=== PATIENT | male | born 1965 | race Caucasian/White ===

== ENCOUNTER 2020-03-14 15:30 | Outpatient (CLI) | payer OTHER, SELFPAY | END 2020-03-14 15:31 | disposition home or self-care (01) | LOC: SPT 15:32 | PROVIDERS: Family Provider Nurse Practitioner Family; PCP Nurse Practitioner Family; Visit Provider Podiatrist Foot & Ankle Surgery | DX: Z46.89 Encounter for fitting and adjustment of other specified devices (principal); M25.571 Pain in right ankle and joints of right foot; Q66.89 Other specified congenital deformities of feet | CPT/HCPCS: L3030 ==

== ENCOUNTER → 2020-08-12 15:30 | Outpatient (BNVA) | payer OTHER, SELFPAY | PROVIDERS: Family Provider Nurse Practitioner Family; PCP Nurse Practitioner Family; Visit Provider Podiatrist Foot & Ankle Surgery | DX: Z11.59 Encounter for screening for other viral diseases (principal) | CPT/HCPCS: 87635 ==

== ENCOUNTER 2020-08-13 09:12 | Outpatient (CLI) | payer OTHER, SELFPAY ==
--- NOTE | 2020-08-13 09:16 | MR_ITS ---
WS: [id number] INDICATION: Preoperative planning congenital anomaly TECHNIQUE: MRI of the right foot without gadolinium enhancement. Sagittal PD STIR, axial T1 STIR, axi al PD T2 coronal PD coronal T2 fat sat FINDINGS: Area of interest marked on the lateral side of the foot overlying the cuboid. Normal bone m arrow signal in the talus and calcaneus. Tiny Achilles enthesophyte. Erosive changes involving the la teral aspect of the navicular and cuboid articulation. A few small erosions involving the tarsal bone s. Fifth metatarsal base is normal in appearance. Normal medial and lateral malleolus. Distal Kinga s is normal in appearance. Normal bone marrow signal in the underlying cuboid. Normal peroneal tendons. Normal visualized soft tissues. No drainable abscess or fluid collection. No rmal bone marrow signal involving the metatarsals and visualized phalanges. Degenerative arthritis wi th subchondral cystic change involving the first metatarsal and adjacent proximal phalanx with edema. MR/MR foot RT wo con* [id number] IMPRESSION: 1. Marker overlying the lateral midfoot at the level of the cuboid. Degenerati ve arthritis with subchondral cystic change at the cuboid navicular articulatio n. Otherwise normal bone marrow signal in the underlying cuboid. 2. Base of fifth metatarsal is normal in appearance. 3. Ankle mortise is normal in appearance. Normal medial and lateral malleolus. Normal bone marrow signal in the talus and calcaneus. 4. Tiny Achilles enthesophyte. 5. Visualized peroneal tendon sheath appears unremarkable. 6. Degenerative arthritis worse at the first MTP with subchondral cystic valente e and edema in the first proximal phalanx.
== END 2020-08-13 09:13 | disposition home or self-care (01) ==
LOC: RADSHAW 09:15
PROVIDERS: PCP Family Medicine; Visit Provider Podiatrist Foot & Ankle Surgery
DX: Q66.89 Other specified congenital deformities of feet (principal); M19.071 Primary osteoarthritis, right ankle and foot; R60.0 Localized edema
CPT/HCPCS: 73718

== ENCOUNTER 2020-08-16 06:21 | Day surgery (SDC) | payer OTHER, SELFPAY ==
[2020-08-16] VITALS (14 sets, daily range): BP systolic 94–148; BP diastolic 67–82; PULSE 64–80; RESP 14–27; TEMP 36.1–36.6; O2SAT 94–99
--- NOTE | 2020-08-16 | SCC_ITS ---
Procedure Done: Excision of right tarsal coalition 25308 9 seconds of fluoroscopic guidance, for a cumulative dose of 0.169 mGy, was provided to Dr. Hernandez by the radiology department. C-arm images of the -RIGHT foot were saved for the patient's permanent record. [facility]Fish
--- NOTE | 2020-08-16 06:45 | P.ANESASSM_ITS ---
Pre-Anesthetic Assessment Pre-Anesthetic Assessment: Height/Weight: Height 1.75 m Weight 82.1 kg Temp Pulse Resp BP Pulse Ox 97.8 F 71 20 H 133/82 98 08/16/20 06:29 08/16/20 06:29 08/16/20 06:29 08/16/20 06:29 08/16/20 06:29 Preop Diagnosis: Right tarsal coalition Proposed Procedure: Operation Date: 08/16/20 08:00 Proposed Procedures p Excision of right tarsal coalition 04937 Q66.89(Right) - Chris Hernandez DPM Familial anesthetic complications: none Last intake: Intake Last Liquid Date 08/15/20 Last Liquid Time 20:00 Last Solid Date 08/15/20 Last Solid Time 18:00 Social: Social History: Tobacco and No alcohol Exam: Pre-Anes Outpt Exam: alert, oriented x 3, clear to auscultation bilaterally and regular rate & rhythm Airway: Cervical ROM: WNL MP: 2 Dentition: Partials CV/HEM: CV/HEM: CAD (only on aspirin; doing well, no chest pains, able to ach ieve > 4 METS), HTN and HI (2011) Hepatic: Hepatic: None reported GI: GI: None reported Metabolic: Metabolic: None reported Musc/skel: Musc/skel: None reported Neuropsych: Neuropsych: None reported Anesthetic Plan: ASA status: 2 Anesthesia: General and Regional (specify below) Risk of > 500 ml blood loss (7ml/kg in children): No PFSH Anesthesia PFSH: Medical History (Updated 07/31/20 @ 08:58 by Chris Hernandez DPM) CAD (coronary artery disease) Dyslipidemia Essential hypertension Glucose intolerance (impaired glucose tolerance) Non-ST elevation HI (NSTEMI) Presence of stent in left circumflex coronary artery Surgical History (Updated 07/31/20 @ 08:58 by Chris Hernandez DPM) Hx of coronary angioplasty Social History Smoking and tobacco status: former smoker Alcohol intake: never Marital status: Current occupational status: employed Data Anesthesia Cardiac Studies: No Data to Display
[2020-08-16] MEDS: sodium chloride 0.9% 1,000 ML 30 ML IV (06:47)
[2020-08-16] MEDS: midazolam 1 mg/mL INJ 2 mL 2 MG IVP (06:55)
--- NOTE | 2020-08-16 07:05 | ANES.PROC ---
Anesthesia Procedures Procedure/Date: 08/16/20 Nerve Block ^: Nerve Block 1: Main Anesthesia: general anesthesia Time Out Performed: Yes Consent: requested by attending/covering physician, from patient, risks and benefits reviewed and patient agrees to proceed Nerve block location: popliteal (R) Anesthesia monitors applied: pulse oximetry, EKG, BP cuff and oxygen Nerve block position: supine Anesthetic Used: ropivicaine 0.5% and with decadron (4 mg) Amount of anesthesia used (mL): 30 Ultrasound used to: recognize landmarks Nerve Stimulator Used?: No Interscalene/Femoral BLK: 4 stimuplex 21 g needle used for position and inplane approach, visualize local anesthetic spread and no vascular puncture identified Injection: neg aspiration of heme Patient Tolerated Procedure: well and no complications Complications: none and inadequate anesthesia Additional Comments: Approximately 45 minutes after block patient states he still feels the the throbbing pain sensation in his ankle that he gets when he stands up. However, patient also states his foot feels numb. Informed patient the block may continue to improve, he will continue to feel discomfort at the medial ankle, or that the local solution may not have surrounded the common peroneal and tibial nerve circumferentially.
--- NOTE | 2020-08-16 07:13 | SUR.OPER ---
Nerve block done on pt's right knee for a right foot surgery.
--- NOTE | 2020-08-16 08:33 | P.HPUD_ITS ---
Surgery/Procedure H&P Update DATE OF PROCEDURE: August 16, 2020 DATE H&P PERFORMED: 07/31/20 H&P UPDATE INFORMATION: I have reviewed H&P completed within last 30 days, I have examined patient prior to procedure, No changes to prior documentation and H&P is in [facility] EMR on date indicated PREOP DIAGNOSIS: Right tarsal coalition PLANNED PROCEDURE: Operation Date: 08/16/20 08:00 Proposed Procedures p Excision of right tarsal coalition 12586 Q66.89(Right) - Chris Hernandez DPM
--- NOTE | 2020-08-16 08:33 | P.OP_ITS ---
Operative Report Date of procedure: August 16, 2020 Pre-op Diagnosis: Right tarsal coalition Post-op diagnosis: same Procedure Done: Excision of right tarsal coalition [id number] Implants: Interpositional silicone sheet. 2-0 Vicryl, 4-0 Vicryl, 4-0 nylon. Pathology: none sent Surgeon: Chris Hernandez D.P.M. Accounting Office Manager: Nielsh Kim Anesthesia: MAC Estimated blood loss: Less than 5 mL Tourniquet time: See intraoperative documentation. 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 Patient has failed cortisone injections, supportive shoes, functional bracing including orthotics and AFO, NSAIDs, and home therapy and stretching as well as activity modifications has pain on a daily basis this is been progressive would like to discuss surgical resection of the coalition. Risks include pain, bleeding, numbness, infection, failure to correct deformity, recurrence of coalition and need for further surgery in the future, damage to adjacent soft tissue structures, numbness, chronic swelling, bruising, surgical site dehiscence, postoperative infection. Patient is agreeable wishes to proceed informed consent signed and right foot initialed in preop. No guarantees written, expressed or implied. Procedure: Under mild sedation the patient was brought to the operating room and placed on the operating table in supine position. A timeout was performed. Anesthesia was then administered by the anesthesia service. Of note patient received a popliteal block preoperatively per anesthesia. Local anesthesia injected by myself and a saphenous nerve block right ankle utilizing 0.5% Marcaine plain 2 cc utilized. Well-padded pneumatic tourniquet applied to the right ankle. Right lower extremity was scrubbed, prepped and draped utilizing normal aseptic technique. Right foot was examined a weighted with an Esmarch bandage and a tourniquet was inflated to 250 mmHg. Attention was directed to the right dorsal lateral foot where the sinus tarsi was palpated as well as the base of the fourth metatarsal. A sinus tarsi approach was planned and carried out utilizing a #15 blade in a curvilinear fashion starting 1 cm inferior and anterior to the distal fibula coursing in a curvilinear fashion toward the base of the fourth metatarsal, incision was made with a #15 blade through skin. Blunt and sharp dissection carried down through skin and subcutaneous tissue with care taken to retract and preserve neurovascular and tendinous structures. All bleeders were ligated and cauterized as necessary. Within a sinus tarsi the origin of the extensor digitorum brevis muscle was reflected and dissection was carried subperiosteal to the lateral aspect of the cuboid where I was able to identify and visualize the combination of fibrous and osseous coalition of the navicular cuboid of the right foot this was confirmed utilizing triangulation and intraoperative C arm. The coalition was then resected utilizing curved osteotome and small power bur. All rough edges were smoothed. Interpositional silicone sheet was inserted at the resected coalition site. Incision site was then flushed with copious amounts of sterile saline solution. Sinus tarsi was injected with 1 cc of Decadron concentration 4 mg/mL. The motion at the subtalar joint intraoperatively was smooth without crepitus or restriction. Midtarsal joint appeared to function properly while loading intraoperatively. Origin of the extensor digitorum brevis muscle was reestablished and sutured utilizing 2-0 Vicryl. Subcutaneous tissue reapproximated utilizing 4-0 Vicryl and skin reapproximated utilizing 4-0 nylon. Incision site was dressed with Adaptic, sterile 4 x 4, Kerlix and Rodolfo wrap, tourniquet was then deflated and a prompt hyperemic response was noted to the distal digits of the right foot. Patient tolerated procedure well and was transferred to the PACU with vital signs stable vascular status intact. He had a cam boot which was applied to the right lower extremity. Following a period of postoperative monitoring he will be discharged home is to remain nonweightbearing at this time he has a order written for crutches. Patient provided my cell phone number and follow-up in podiatry clinic.
[2020-08-16] MEDS: dexamethasone 4 mg/mL INJ 8 MG (09:26)
[2020-08-16] MEDS: triamcinolone 40 mg/mL SDV (09:27)
[2020-08-16] MEDS: fentaNYL 50 mcg/mL INJ 2mL IVP ×2 (10:03→10:08)
--- NOTE | 2020-08-16 10:22 | ANES.PROC ---
Anesthesia Procedures Procedure/Date: 08/16/20 Nerve Block ^: Nerve Block 1: Main Anesthesia: general anesthesia Consent: requested by attending/covering physician, from patient, from other, risks and benefits reviewed and patient agrees to proceed Nerve block location: popliteal (R) Anesthesia monitors applied: pulse oximetry, EKG, BP cuff and oxygen Nerve block position: supine Anesthetic Used: ropivicaine 0.5% Amount of anesthesia used (mL): 10 Ultrasound used to: recognize landmarks Interscalene/Femoral BLK: 4 stimuplex 21 g needle used for position and inplane approach, visualize local anesthetic spread and no vascular puncture identified Injection: neg aspiration of heme Patient Tolerated Procedure: well Complications: none Additional Comments: Patient continued to have severe pain post op. An extra 10 cc of ropi 0.5% injected with good effect. Patient appears visibly more comfortable
[2020-08-16] MEDS: oxyCODONE-APAP 10-325 mg Tablet 1 TAB PO (10:47)
--- NOTE | 2020-08-16 11:10 | ANE.PACU2 ---
Inpatient post-anesthesia follow up: Airway intact: Yes Vital signs: Temperature 97.2 F Pulse Rate 71 Respiratory Rate 18 Blood Pressure 148/78 Pulse Oximetry 94 Oxygen Delivery Me thod Room Air Oxygen Flow Rate 8 Fraction of Inspir ed Oxygen Hydration adequate: Yes Nausea and vomiting: No Pain level: 4 Mental status: Baseline
== END 2020-08-16 11:10 | disposition home or self-care (01) ==
PROVIDERS: PCP Family Medicine; Visit Provider Podiatrist Foot & Ankle Surgery
PROC: (CPT 28140; principal; 2020-08-16 08:00)
DX: Q66.89 Other specified congenital deformities of feet (principal); I25.10 Atherosclerotic heart disease of native coronary artery without angina pectoris; I10 Essential (primary) hypertension; I25.2 Old myocardial infarction; E78.5 Hyperlipidemia, unspecified; Z95.5 Presence of coronary angioplasty implant and graft; Z87.891 Personal history of nicotine dependence; Z79.82 Long term (current) use of aspirin
CPT/HCPCS: 28116; 12345; 64450; 76000; 76942; J0131; J0690; J1100; J2250; J2370; J2405; J2704; J2795; J3010; J3301; J3490; J7030

== ENCOUNTER 2020-08-23 10:24 | Outpatient (CLI) | payer OTHER, SELFPAY | END 2020-08-23 10:25 | disposition home or self-care (01) | LOC: SPT 10:26 | PROVIDERS: PCP Family Medicine; Visit Provider Podiatrist Foot & Ankle Surgery | DX: Z46.89 Encounter for fitting and adjustment of other specified devices (principal); Q66.89 Other specified congenital deformities of feet | CPT/HCPCS: 97760; L4361 ==

== ENCOUNTER 2021-04-04 07:52 | Outpatient (CLI) | payer OTHER, SELFPAY ==
--- NOTE | 2021-04-04 08:06 | MR_ITS ---
WS: [id number] MRI CERVICAL SPINE NONCONTRAST HISTORY: M54.12 - Radiculopathy, cervical region COMPARISON: None available. Technique: Multiplanar, multisequence noncontrast imaging of the cervical spine. Normal posterior lumbar alignment. Battery replacement in the C5 and C6 adjacent endplates. There is moderate disc space narrowing at C5-6. Signal within the cervical cord is normal. Visualized posterior fossa is unremarkable. Craniocervical junction, C1 and C2 relationship, odontoid process and soft tissues are normal. C2-C3: Normal. C3-C4: Mild annular disc bulging with hypertrophic osteophytes. Mild bilateral facet joint arthritis. Moderate RIGHT and mild LEFT foraminal stenosis predominantly due to osteophytes. C4-C5: Very mild annular disc bulge with a central disc protrusion. Mild bilateral facet joint arthri tis and foraminal osteophytes. Only mild LEFT foraminal narrowing. C5-C6: Moderate annular disc bulging with osteophytic ridging. Disc osteophyte complexes extend into the foramen causing moderate to severe bilateral foraminal narrowing. Moderate central stenosis. C6-C7: Mild asymmetric disc bulging and osteophytosis. Asymmetric to the LEFT. There is a small shall ow LEFT paracentral disc protrusion. Mild central and foraminal stenosis. C7-T1: Normal. Paraspinal soft tissue are normal. MR/MR cervical spin wo con* [id number] IMPRESSION: 1. Moderate to severe bilateral foraminal stenosis with moderate central steno sis at C5-6 due to combination of disc and osteophyte disease. 2. Moderate RIGHT and mild LEFT foraminal stenosis at C3-4 predominantly due t o osteophytes. 3. Mild central and bilateral foraminal stenosis at C6-7.
--- NOTE | 2021-04-04 08:06 | MR_ITS ---
WS: [id number] MRI RIGHT SHOULDER HISTORY: M25.511 - Pain in right shoulder COMPARISON: None available. TECHNIQUE: Multiplanar sequences of the shoulder joint are submitted. Moderate to severe hypertrophic changes at the AC joint. Thickening of the capsule surrounding the AC joint with increased T2 signal. Osteophytes from the AC joint encroaching upon the supraspinatus ten don and muscle. There is an additional smaller osteophyte from the distal undersurface of the acromio n encroaching upon the supraspinatus tendon. No significant subacromial or subdeltoid bursal fluid. N o os acromion. Biceps tendon is in normal position. No muscle atrophy or edema. No rotator cuff tear or significant tendinopathy. There is an irregular d efect with increased T2 signal in the anterior labrum consistent with a partial tear. No fracture or marrow edema. MR/MR shoulder RT wo con* [id number] IMPRESSION: 1. Moderate to severe AC joint hypertrophy. There is encroachment upon the sup raspinatus muscle and tendon by the AC joint hypertrophy and also the distal un dersurface of the acromion. 2. No rotator cuff tear. 3. Highly suspicious for partial tear involving the anterior labrum.
== END 2021-04-04 07:53 | disposition home or self-care (01) ==
PROVIDERS: PCP Family Medicine; Visit Provider Nurse Practitioner Family
DX: M54.12 Radiculopathy, cervical region (principal); M54.2 Cervicalgia; M25.511 Pain in right shoulder; M48.02 Spinal stenosis, cervical region; M25.78 Osteophyte, vertebrae
CPT/HCPCS: 72141; 73221

== ENCOUNTER → 2021-05-20 15:36 | Outpatient (BNVA) | payer OTHER, SELFPAY | PROVIDERS: PCP Family Medicine; Visit Provider Nurse Practitioner Family | DX: E86.0 Dehydration (principal); R11.0 Nausea | CPT/HCPCS: 80053; 81000; 85025 ==

== ENCOUNTER 2021-05-30 06:00 | Outpatient (RCR) | payer OTHER, SELFPAY | END 2021-06-24 23:59 | disposition home or self-care (01) | LOC: GPT 06:00 | PROVIDERS: PCP Family Medicine; Referring Provider Orthopaedic Surgery; Visit Provider Orthopaedic Surgery | DX: S46.911D Strain of unspecified muscle, fascia and tendon at shoulder and upper arm level, right arm, subsequent encounter (principal); X58.XXXD Exposure to other specified factors, subsequent encounter | CPT/HCPCS: 97032; 97110; 97161; 97530 ==

== ENCOUNTER 2022-04-01 23:25 | Emergency (ER) | payer OTHER, SELFPAY ==
[2022-04-01 23:41] VITALS: BP 162/82; PULSE 75; RESP 18; TEMP 36.9; O2SAT 97; BMI 27.0
[2022-04-02 01:19] LABS: Basophils # 0.1 10^3/uL (0.0-0.1); Basophils % 0.4 %; Eosinophils # 0.1 10^3/uL (0.0-0.8); Eosinophils % 0.7 %; Hematocrit 45.2 % (42.0-52.0); Lymphocytes # 2.1 10^3/uL (0.8-4.8); Lymphocytes % 17.6 %; Mean Corpuscular HGB Conc 33.2 g/dL (30.0-36.0); Mean Corpuscular Hemoglobin 29.4 pg (28.0-34.0); Mean Corpuscular Volume 88.6 fl (80-94); Mean Platelet Volume 9.9 fL (7.4-10.4); Monocytes # 0.7 10^3/uL (0.2-0.9); Monocytes % 6.1 %; Neutrophils % 74.9 %; Nucleated Red Blood Cells % 0 %; Platelet Count 200 10^3/cmm (130-400); Red Cell Distribution Width 13.4 % (12.1-15.1); White Blood Count 11.9 10^3/uL (4.0-10.0)
[2022-04-02 01:34] LABS: Alanine Aminotransferase 18 U/L (0-41); Albumin Level 4.8 g/dL (3.5-5.2); Alkaline Phosphatase 85 IU/L (40-130); Anion Gap 15.9 (5-19); Aspartate Amino Transferase 21 U/L (0-40); Blood Urea Nitrogen 11 mg/dL (6-20); Calcium 9.6 mg/dL (8.5-10.5); Carbon Dioxide 29 mmol/L (22-29); Chloride 97 mmol/L (98-107); Globulin 3.4 g/dL (1.3-4.6); Glomerular Filtration Rate 99.3 mL/min (90-130); Glucose 107 mg/dL (65-115); Lipase 23 U/L (13-60); Osmolality Calculated 286 mOsm/kg (285-295); Potassium 3.9 mmol/L (3.5-5.1); Sodium 138 mmol/L (136-145); Total Bilirubin 0.4 mg/dL (0.15-1.2); Total Protein 8.2 g/dL (6.6-8.7); Urine Appearance Clear (CLEAR); Urine Color Yellow (Yellow)
[2022-04-02 01:35] LABS: Add Urine Microscopic? YES; Bilirubin Urine Neg (Negative); Blood Urine 2+ (Negative); Glucose Urine UA Norm (Normal); Ketones Urine Negative (Negative); Leukocyte Esterase Urine Negative (Negative); Nitrate Urine Negative (Negative); Protein Urine Trace (Negative); Specific Gravity, Urine 1.005 (1.005-1.030); Urobilinogen Urine Norm (Negative); WBC Urine 0-4 /hpf (0-5); pH Urine 7 (5-7)
[2022-04-02 01:36] LABS: Add Urine Culture? No; Squamous Epithelial Cell Urine 0-4 /hpf (0-5)
--- NOTE | 2022-04-02 01:45 | CTR_ITS ---
PROCEDURE INFORMATION: Exam: CT Abdomen And Pelvis Without Contrast Exam date and time: 04/02/2022 1:55 AM Age: 56 years old Clinical indication: Nausea and vomiting; Abdominal pain; Localized; Patient HX: C/O upper abd pain with n/v. ; Additional info: Generalized upper abdominal pain, n/v TECHNIQUE: Imaging protocol: Computed tomography of the abdomen and pelvis without contrast. Radiation optimization: All CT scans at this facility use at least one of these dose optimization techniques: automated exposure control; mA and/or kV adjustment per patient size (includes targeted exams where dose is matched to clinical indication); or iterative reconstruction. COMPARISON: No relevant prior studies available. RADIATION DOSE METRICS: Total DLP (mGy-cm): 1364.71 FINDINGS: Lungs: The visualized lung bases demonstrate no focal airspace opacification or pleural effusion. Heart: The visualized heart is within normal limits for size. There is no evidence of pericardial abnormality. Liver: The liver is normal in size and contour. Gallbladder and bile ducts: The gallbladder is well distended. Minimal layering sludge versus stones in the gallbladder fundus. Gallbladder wall thickening noted. No pericholecystic fat stranding identified. Pancreas: The pancreas appears normal. Spleen: The spleen appears normal. Adrenal glands: The adrenals appear normal. Kidneys and ureters: The kidneys empty into non-dilated ureters. No renal or ureteral stones are identified. No perinephric or periureteral fat tissue stranding is identified. Stomach and bowel: The stomach is unremarkable. The small bowel loops are not abnormally dilated. The large bowel loops are not abnormally dilated. Appendix: The appendix appears normal. Intraperitoneal space: No ascites or significant fluid collection. Vasculature: The infrarenal abdominal aorta measures up to 5 cm in diameter. Lymph nodes: There are no enlarged lymph nodes. Urinary bladder: The bladder is distended and demonstrates no focal contour abnormality. Reproductive: The prostate is unremarkable. The seminal vesicles are unremarkable. Bones/joints: Large calcification measuring up to 2.0 cm noted in the superficial fat overlying the right gluteal muscles.Multilevel degenerative changes in the spine. Grade 1 retrolisthesis of L5 on S1. Soft tissues: Unremarkable. CT/CT abdomen pelvis wo con [id number] IMPRESSION: Minimal layering sludge versus stones in the gallbladder fundus. Gallbladder wall thickening noted, but no pericholecystic fat stranding identified. Recommend ultrasound evaluation for cholecystitis. COMMENTS: Evaluation of solid organs and vascular structures is limited as no IV contrast was administered.
--- NOTE | 2022-04-02 01:47 | W.ED.ABDPA2 ---
Documented by User: SHMUEL Ball 04/02/22 03:09 HPI - Abdominal Pain General: Chief Complaint: Abdominal Pain Stated Complaint: stomach problems Time Seen by Provider: 04/02/22 00:01 History of Present Illness: Patient is a 56-year-old male who comes to the ED with abdominal pain. Symptoms started at about 6 PM tonight. He ate a bunch of food for dinner today and his symptoms started shortly after eating. He was having 10 out of 10 abdominal pain right after he ate. Abdominal pain was located throughout upper abdomen. He has never had abdominal pain like this before. He had nausea at that time as well. Pain was not getting any better and he felt like he needed to vomit help his symptoms so he forced himself to throw up. Here in the ED, his symptoms have improved and he says his abdominal pain now is a 2 out of 10. Denies any fever, chills, chest pain, shortness of breath, nausea, vomiting, bladder or bowel symptoms. Denies any past history of gallbladder issues. Associated Symptoms: Reports nausea and vomiting; Denies chills, constipation, diarrhea, dysuria, fever(s), hematochezia and hematuria Review of Systems Const: Denies: fever(s), chills or fatigue Eyes: Denies: change in vision or eye discomfort ENMT: Denies: throat pain, odynophagia, nasal discharge or nasal congestion Card: Denies: chest pain, palpitations, edema, swelling of feet/ankles, dyspnea on exertion or orthopnea Resp: Denies: dyspnea, productive cough or non-productive cough GI: Reports: abdominal pain, nausea and vomiting; Denies: diarrhea, constipation or hematochezia : Denies: flank pain, difficulty urinating, dysuria or hematuria Musc: Denies: neck pain, back pain or extremity swelling Skin/Breast: Denies: rash or new lesions Neuro: Denies: headache(s), numbness in extremities or weakness in extremities PFS ED PFSH: Medical History (Updated 04/10/22 @ 00:01 by ) CAD (coronary artery disease) Dyslipidemia Essential hypertension Glucose intolerance (impaired glucose tolerance) Non-ST elevation NM (NSTEMI) Presence of stent in left circumflex coronary artery Surgical History Hx of coronary angioplasty Social History Smoking and tobacco status: current every day smoker (pack a day) Alcohol intake: never Marital status: Current occupational status: employed Physical Exam Const: COMMON NORMALS: no acute distress, patient oriented x3 and alert GENERAL APPEARANCE: cooperative and comfortable HENMT: COMMON NORMALS: normocephalic HEAD & SCALP: normocephalic MOUTH: Normal oral and palatal mucosa present THROAT: posterior oropharynx normal and uvula midline Eye: COMMON NORMALS: Equal, round and reactive pupils present and conjunctivae normal CONJUNCTIVA: Yes conjunctivae normal PUPIL: Yes Equal, round and reactive pupils present Neck/C-Spine: COMMON NORMALS: supple GENERAL: Yes normal visual inspection Resp: COMMON NORMALS: normal respiratory effort, No retractions, No use of accessory muscles and clear to auscultation bilaterally AUSCULTATION: clear to auscultation bilaterally Cardio: COMMON NORMALS: regular rate, regular rhythm, S1 normal heart sound present, S2 normal heart sound present, No gallops present (Cardio), No clicks present (Cardio), No murmurs present (Cardio) and Peripheral pulses 2+ throughout RATE: regular rate RHYTHM: regular rhythm HEART SOUNDS: S1 normal heart sound present and S2 normal heart sound present PERIPHERAL PULSES: Peripheral pulses 2+ throughout GI: COMMON NORMALS: Normal to inspection, nondistended, normoactive bowel sounds present, Soft to palpation, non-tender and no masses PALPATION: Yes Soft to palpation and No Tenderness to palpation present (GI) OTHER: Patient's abdomen is nontender upon light and deep palpation throughout all 4 quadrants. : COMMON NORMALS: Yes no CVA tenderness BLADDER/KIDNEY EXAM: Yes no CVA tenderness Back/Pelvis: COMMON NORMALS: no CVA tenderness Extremity: COMMON NORMALS: normal to inspection and no pedal edema Neuro: COMMON NORMALS: patient oriented x3 SENSORIUM/ORIENTATION: Yes alert GAIT: Yes Normal gait present Skin: GENERAL SKIN EXAM: dry skin Course Vital Signs: Vital signs: Vital Signs Temperature 98.4 F 04/01/22 23:41 Pulse Rate 80 04/02/22 03:46 Respiratory Rate 16 04/02/22 03:46 Blood Pressure 162/82 04/01/22 23:41 Pulse Oximetry 98 04/02/22 03:46 MDM - Abdominal Pain Medical Decision Making Patient is a 56-year-old male comes to the ED with abdominal pain. Patient says symptoms started today just after he ate dinner. He said the pain was in the upper abdomen and he was nauseous and had episode of emesis. Here in the ED his abdominal pain has improved greatly without any treatment and he currently rates it 2 out of 10 and says he does not have any nausea. Vitals are stable. White blood cell count 11.9 but the rest of his labs are unremarkable. CT of abdomen pelvis and ultrasound gallbladder are both pending. Patient case was discussed with Dr. Medina and he will be taking over care of patient. Dr. Medina will be managing patient and planning discharge pending image findings. Pantera Suarez PA-C Lab Data I reviewed the patient's lab results. : 04/02/22 01:07 04/02/22 01:07 Labs/Radiology: Radiology Impressions Abdomen/Pelvis CT 04/02/22 01:45 IMPRESSION: Minimal layering sludge versus stones in the gallbladder fundus. Gallbladder wall thickening noted, but no pericholecystic fat stranding identified. Recommend ultrasound evaluation for cholecystitis. COMMENTS: Evaluation of solid organs and vascular structures is limited as no IV contrast was administered. ADDENDUM: 04/02/22 5000 Error in the body of the report: Under the heading vasculature: The infrarenal abdominal aorta measures up to 2.5 cm in diameter. Findings were discussed with Dr. Medina at 04/02/2022 3:38 AM CDT. Gallbladder Ultrasound 04/02/22 02:00 IMPRESSION: 1. Thickened gallbladder wall noted, but no pericholecystic fluid or gallstones identified. Additionally a negative sonographic Balbuena sign is noted. Low probability for acute cholecystitis. If persistent concern for chronic cholecystitis, recommend HIDA scan. 2. No intra or extrahepatic biliary dilatation. Laboratory Results WBC 11.9 10^3/uL (4.0-10.0) H 04/02/22 01:07 RBC 5.10 10^6/uL (4.1-5.3) 04/02/22 01:07 Hgb 15.0 g/dL (11.7-16.6) 04/02/22 01:07 Hct 45.2 % (42.0-52.0) 04/02/22 01:07 MCV 88.6 fl (80-94) 04/02/22 01:07 MCH 29.4 pg (28.0-34.0) 04/02/22 01:07 MCHC 33.2 g/dL (30.0-36.0) 04/02/22 01:07 RDW 13.4 % (12.1-15.1) 04/02/22 01:07 Plt Count 200 10^3/cmm (130-400) 04/02/22 01:07 MPV 9.9 fL (7.4-10.4) 04/02/22 01:07 Neut % (Auto) 74.9 % 04/02/22 01:07 Lymph % (Auto) 17.6 % 04/02/22 01:07 Nelson % (Auto) 6.1 % 04/02/22 01:07 Eos % (Auto) 0.7 % 04/02/22 01:07 Baso % (Auto) 0.4 % 04/02/22 01:07 Neut # (Auto) 8.90 10^3/uL (1.8-7.7) H 04/02/22 01:07 Lymph # (Auto) 2.1 10^3/uL (0.8-4.8) 04/02/22 01:07 Nelson # (Auto) 0.7 10^3/uL (0.2-0.9) 04/02/22 01:07 Eos # (Auto) 0.1 10^3/uL (0.0-0.8) 04/02/22 01:07 Baso # (Auto) 0.1 10^3/uL (0.0-0.1) 04/02/22 01:07 Nucleated RBC % (auto) 0 % 04/02/22 01:07 Nucleated RBCs # 0.0 /100WBC 04/02/22 01:07 Sodium 138 mmol/L (136-145) 04/02/22 01:07 Potassium 3.9 mmol/L (3.5-5.1) 04/02/22 01:07 Chloride 97 mmol/L (98-107) L 04/02/22 01:07 Carbon Dioxide 29 mmol/L (22-29) 04/02/22 01:07 Anion Gap 15.9 (5-19) 04/02/22 01:07 BUN 11 mg/dL (6-20) 04/02/22 01:07 Creatinine 0.8 mg/dL (0.7-1.2) 04/02/22 01:07 GFR Calculation 99.3 mL/min (90-130) 04/02/22 01:07 Glucose 107 mg/dL (65-115) 04/02/22 01:07 Calculated Osmolality 286 mOsm/kg (285-295) 04/02/22 01:07 Calcium 9.6 mg/dL (8.5-10.5) 04/02/22 01:07 Total Bilirubin 0.4 mg/dL (0.15-1.2) 04/02/22 01:07 AST 21 U/L (0-40) 04/02/22 01:07 ALT 18 U/L (0-41) 04/02/22 01:07 Alkaline Phosphatase 85 IU/L (40-130) 04/02/22 01:07 Total Protein 8.2 g/dL (6.6-8.7) 04/02/22 01:07 Albumin 4.8 g/dL (3.5-5.2) 04/02/22 01:07 Globulin 3.4 g/dL (1.3-4.6) 04/02/22 01:07 Lipase 23 U/L (13-60) 04/02/22 01:07 Urine Color Yellow (Yellow) 04/02/22 01:07 Urine Appearance Clear (CLEAR) 04/02/22 01:07 Urine pH 7 (5-7) 04/02/22 01:07 Ur Specific [place] 1.005 (1.005-1.030) 04/02/22 01:07 Urine Protein Trace (Negative) 04/02/22 01:07 Urine Glucose (UA) Norm (Normal) 04/02/22 01:07 Urine Ketones Negative (Negative) 04/02/22 01:07 Urine Blood 2+ (Negative) H 04/02/22 01:07 Urine Nitrate Negative (Negative) 04/02/22 01:07 Urine Bilirubin Neg (Negative) 04/02/22 01:07 Urine Urobilinogen Norm mg/dL (Negative) 04/02/22 01:07 Ur Leukocyte Esterase Negative (Negative) 04/02/22 01:07 Urine RBC 5-10 /hpf (0-2) H 04/02/22 01:07 Urine WBC 0-4 /hpf (0-5) H 04/02/22 01:07 Ur Squamous Epith Cells 0-4 /hpf (0-5) H 04/02/22 01:07 Amorphous Sediment Not Reportable 04/02/22 01:07 Urine Bacteria None /hpf (NONE) 04/02/22 01:07 Discharge Plan Discharge Patient Disposition: Home Clinical Impression: Abdominal pain Condition: Stable Prescriptions: No Action aspirin [[place]dee Chewable Aspirin] 81 mg tablet,chewable 81 mg PO QDAY 0RF (DME) Sole Supports Qty: 1 0RF Rx Instructions: As directed (DME) sole supports Qty: 1 0RF Rx Instructions: As directed ibuprofen 800 mg tablet 800 mg PO Q8H 7 Days Qty: 21 0RF naproxen 500 mg tablet 500 mg PO BID Qty: 60 0RF (DME) sole supports See Rx Instructions .Route .MEDSUPPLY Qty: 1 0RF Rx Instructions: As directed nitroglycerin 0.4 mg tablet, sublingual See Rx Instructions .ROUTE .COMPLEX Qty: 1 0RF Dose Instruction: TAKE ONE TABLET UNDER THE TONGUE EVERY 5 MINUTES FOR MAX OF 3 FOR CHEST PAINS Rx Instructions: TAKE ONE TABLET UNDER THE TONGUE EVERY 5 MINUTES FOR MAX OF 3 FOR CHEST PAINS ondansetron 8 mg tablet,disintegrating 8 mg PO Q8H PRN (Reason: nausea and vomiting) Qty: 20 0RF Spiriva Respimat 2.5 mcg/actuation mist 2 puff inhalation QAM Qty: 4 11RF albuterol sulfate 90 mcg/actuation HFA aerosol inhaler 2 puff inhalation Q4H PRN (Reason: shortness of breath or wheezing) Qty: 8.5 11RF (DME) Aerochamber MV Spacer See Rx Instructions .Route Qty: 10 0RF Rx Instructions: As directed amlodipine-benazepril 10-40 mg capsule 1 cap PO DAILY Qty: 90 3RF metoprolol tartrate 25 mg tablet 25 mg PO BID Qty: 180 2RF Discharge Orders: Discharge ED (Routine); Ordered 04/02/22 Ordered By: Kev Medina Referrals: Richard Coronel, [Primary Care Provider] - Discharge Diet: Usual diet Discharge Activity: Increase activity as tolerated Patient Instructions: Abdominal Pain (ED), Opioid Safety Activity Restrictions/Additional Instructions: Thank you for visiting the emergency department. You were seen evaluated for abdominal pain. The exact cause of your symptoms is unclear. Your gallbladder was mildly abnormal as discussed however it does not appear that you have acute cholecystitis especially given improvement in symptoms. Please follow-up with your primary care provider. Please return to the emergency department for fevers, worsening symptoms, or anything else that you are concerned about a feel needs emergency department evaluation. Sign Out Sign Out Data: Patient Sign Out occurred on 04/02/22 at 03:30. Patient's care was discussed, and care was transferred from to Kev Medina MD. Coding Level of Care Code ED Operator Weapon Locating Radar for Chg Fwd Exam Comprehensive Documented by User: Kev Medina MD 04/13/22 02:06 HPI - Abdominal Pain General: Chief Complaint: Abdominal Pain Stated Complaint: stomach problems Time Seen by Provider: 04/02/22 00:01 [facility] ED [facility]: Medical History (Updated 04/10/22 @ 00:01 by ) CAD (coronary artery disease) Dyslipidemia Essential hypertension Glucose intolerance (impaired glucose tolerance) Non-ST elevation NM (NSTEMI) Presence of stent in left circumflex coronary artery Surgical History Hx of coronary angioplasty Social History Smoking and tobacco status: current every day smoker (pack a day) Alcohol intake: never Marital status: Current occupational status: employed Course Vital Signs: Vital signs: Vital Signs Temperature 98.4 F 04/01/22 23:41 Pulse Rate 80 04/02/22 03:46 Respiratory Rate 16 04/02/22 03:46 Blood Pressure 162/82 04/01/22 23:41 Pulse Oximetry 98 04/02/22 03:46 MDM - Abdominal Pain Medical Decision Making Patient is a 56-year-old male comes to the ED with abdominal pain. Patient says symptoms started today just after he ate dinner. He said the pain was in the upper abdomen and he was nauseous and had episode of emesis. Here in the ED his abdominal pain has improved greatly without any treatment and he currently rates it 2 out of 10 and says he does not have any nausea. Vitals are stable. White blood cell count 11.9 but the rest of his labs are unremarkable. CT of abdomen pelvis and ultrasound gallbladder are both pending. Patient case was discussed with Dr. Medina and he will be taking over care of patient. Dr. Medina will be managing patient and planning discharge pending image findings. Pantera Suarez PA-C Patient discussed with SHMUEL Ball. I personally saw and evaluated the patient and reperformed whitt portions of E/M. Laboratory studies and imaging studies were reviewed. Discussed results of ED evaluation with the patient, he has desire to be discharged which I feel is reasonable. Return precautions and follow-up negative. Kev Medina MD Emergency Medicine Lab Data : 04/02/22 01:07 04/02/22 01:07 Labs/Radiology: Radiology Impressions Abdomen/Pelvis CT 04/02/22 01:45 IMPRESSION: Minimal layering sludge versus stones in the gallbladder fundus. Gallbladder wall thickening noted, but no pericholecystic fat stranding identified. Recommend ultrasound evaluation for cholecystitis. COMMENTS: Evaluation of solid organs and vascular structures is limited as no IV contrast was administered. ADDENDUM: 04/02/22 4130 Error in the body of the report: Under the heading vasculature: The infrarenal abdominal aorta measures up to 2.5 cm in diameter. Findings were discussed with Dr. Medina at 04/02/2022 3:38 AM CDT. Gallbladder Ultrasound 04/02/22 02:00 IMPRESSION: 1. Thickened gallbladder wall noted, but no pericholecystic fluid or gallstones identified. Additionally a negative sonographic Balbuena sign is noted. Low probability for acute cholecystitis. If persistent concern for chronic cholecystitis, recommend HIDA scan. 2. No intra or extrahepatic biliary dilatation. Laboratory Results WBC 11.9 10^3/uL (4.0-10.0) H 04/02/22 01:07 RBC 5.10 10^6/uL (4.1-5.3) 04/02/22 01:07 Hgb 15.0 g/dL (11.7-16.6) 04/02/22 01:07 Hct 45.2 % (42.0-52.0) 04/02/22 01:07 MCV 88.6 fl (80-94) 04/02/22 01:07 MCH 29.4 pg (28.0-34.0) 04/02/22 01:07 MCHC 33.2 g/dL (30.0-36.0) 04/02/22 01:07 RDW 13.4 % (12.1-15.1) 04/02/22 01:07 Plt Count 200 10^3/cmm (130-400) 04/02/22 01:07 MPV 9.9 fL (7.4-10.4) 04/02/22 01:07 Neut % (Auto) 74.9 % 04/02/22 01:07 Lymph % (Auto) 17.6 % 04/02/22 01:07 Nelson % (Auto) 6.1 % 04/02/22 01:07 Eos % (Auto) 0.7 % 04/02/22 01:07 Baso % (Auto) 0.4 % 04/02/22 01:07 Neut # (Auto) 8.90 10^3/uL (1.8-7.7) H 04/02/22 01:07 Lymph # (Auto) 2.1 10^3/uL (0.8-4.8) 04/02/22 01:07 Nelson # (Auto) 0.7 10^3/uL (0.2-0.9) 04/02/22 01:07 Eos # (Auto) 0.1 10^3/uL (0.0-0.8) 04/02/22 01:07 Baso # (Auto) 0.1 10^3/uL (0.0-0.1) 04/02/22 01:07 Nucleated RBC % (auto) 0 % 04/02/22 01:07 Nucleated RBCs # 0.0 /100WBC 04/02/22 01:07 Sodium 138 mmol/L (136-145) 04/02/22 01:07 Potassium 3.9 mmol/L (3.5-5.1) 04/02/22 01:07 Chloride 97 mmol/L (98-107) L 04/02/22 01:07 Carbon Dioxide 29 mmol/L (22-29) 04/02/22 01:07 Anion Gap 15.9 (5-19) 04/02/22 01:07 BUN 11 mg/dL (6-20) 04/02/22 01:07 Creatinine 0.8 mg/dL (0.7-1.2) 04/02/22 01:07 GFR Calculation 99.3 mL/min (90-130) 04/02/22 01:07 Glucose 107 mg/dL (65-115) 04/02/22 01:07 Calculated Osmolality 286 mOsm/kg (285-295) 04/02/22 01:07 Calcium 9.6 mg/dL (8.5-10.5) 04/02/22 01:07 Total Bilirubin 0.4 mg/dL (0.15-1.2) 04/02/22 01:07 AST 21 U/L (0-40) 04/02/22 01:07 ALT 18 U/L (0-41) 04/02/22 01:07 Alkaline Phosphatase 85 IU/L (40-130) 04/02/22 01:07 Total Protein 8.2 g/dL (6.6-8.7) 04/02/22 01:07 Albumin 4.8 g/dL (3.5-5.2) 04/02/22 01:07 Globulin 3.4 g/dL (1.3-4.6) 04/02/22 01:07 Lipase 23 U/L (13-60) 04/02/22 01:07 Urine Color Yellow (Yellow) 04/02/22 01:07 Urine Appearance Clear (CLEAR) 04/02/22 01:07 Urine pH 7 (5-7) 04/02/22 01:07 Ur Specific [place] 1.005 (1.005-1.030) 04/02/22 01:07 Urine Protein Trace (Negative) 04/02/22 01:07 Urine Glucose (UA) Norm (Normal) 04/02/22 01:07 Urine Ketones Negative (Negative) 04/02/22 01:07 Urine Blood 2+ (Negative) H 04/02/22 01:07 Urine Nitrate Negative (Negative) 04/02/22 01:07 Urine Bilirubin Neg (Negative) 04/02/22 01:07 Urine Urobilinogen Norm mg/dL (Negative) 04/02/22 01:07 Ur Leukocyte Esterase Negative (Negative) 04/02/22 01:07 Urine RBC 5-10 /hpf (0-2) H 04/02/22 01:07 Urine WBC 0-4 /hpf (0-5) H 04/02/22 01:07 Ur Squamous Epith Cells 0-4 /hpf (0-5) H 04/02/22 01:07 Amorphous Sediment Not Reportable 04/02/22 01:07 Urine Bacteria None /hpf (NONE) 04/02/22 01:07 Discharge Plan Discharge Patient Disposition: Home Clinical Impression: Abdominal pain Condition: Stable Prescriptions: No Action aspirin [[place]dee Chewable Aspirin] 81 mg tablet,chewable 81 mg PO QDAY 0RF (DME) Sole Supports Qty: 1 0RF Rx Instructions: As directed (DME) sole supports Qty: 1 0RF Rx Instructions: As directed ibuprofen 800 mg tablet 800 mg PO Q8H 7 Days Qty: 21 0RF naproxen 500 mg tablet 500 mg PO BID Qty: 60 0RF (DME) sole supports See Rx Instructions .Route .MEDSUPPLY Qty: 1 0RF Rx Instructions: As directed nitroglycerin 0.4 mg tablet, sublingual See Rx Instructions .ROUTE .COMPLEX Qty: 1 0RF Dose Instruction: TAKE ONE TABLET UNDER THE TONGUE EVERY 5 MINUTES FOR MAX OF 3 FOR CHEST PAINS Rx Instructions: TAKE ONE TABLET UNDER THE TONGUE EVERY 5 MINUTES FOR MAX OF 3 FOR CHEST PAINS ondansetron 8 mg tablet,disintegrating 8 mg PO Q8H PRN (Reason: nausea and vomiting) Qty: 20 0RF Spiriva Respimat 2.5 mcg/actuation mist 2 puff inhalation QAM Qty: 4 11RF albuterol sulfate 90 mcg/actuation HFA aerosol inhaler 2 puff inhalation Q4H PRN (Reason: shortness of breath or wheezing) Qty: 8.5 11RF (DME) Aerochamber MV Spacer See Rx Instructions .Route Qty: 10 0RF Rx Instructions: As directed amlodipine-benazepril 10-40 mg capsule 1 cap PO DAILY Qty: 90 3RF metoprolol tartrate 25 mg tablet 25 mg PO BID Qty: 180 2RF Discharge Orders: Discharge ED (Routine); Ordered 04/02/22 Ordered By: Kev Medina Referrals: Richard Coronel, DO [Primary Care Provider] - Discharge Diet: Usual diet Discharge Activity: Increase activity as tolerated Patient Instructions: Abdominal Pain (ED), Opioid Safety Activity Restrictions/Additional Instructions: Thank you for visiting the emergency department. You were seen evaluated for abdominal pain. The exact cause of your symptoms is unclear. Your gallbladder was mildly abnormal as discussed however it does not appear that you have acute cholecystitis especially given improvement in symptoms. Please follow-up with your primary care provider. Please return to the emergency department for fevers, worsening symptoms, or anything else that you are concerned about a feel needs emergency department evaluation. Sign Out Sign Out Data: Patient Sign Out occurred on 04/02/22 at 03:30. Patient's care was discussed, and care was transferred from to Kev Medina MD. Coding Level of Care Code ED Operator Weapon Locating Radar for [place] Fwd Exam Comprehensive
--- NOTE | 2022-04-02 02:00 | USR_ITS ---
PROCEDURE INFORMATION: Exam: US Abdomen, Limited; Right Upper Quadrant Exam date and time: 04/02/2022 2:33 AM Age: 56 years old Clinical indication: Nausea and vomiting; Additional info: Upper abdominal pain after eating TECHNIQUE: Imaging protocol: US abdomen. Real time ultrasound with image documentation. Limited exam focused on the right upper quadrant. COMPARISON: CT abdomen pelvis wo con [id number] 04/02/2022 1:55 AM FINDINGS: Liver: The liver appears unremarkable. No intrahepatic biliary dilatation identified. Gallbladder: Gallbladder wall is thickened measuring up to 0.5 cm in thickness. Negative sonographic Balbuena sign. No calcified gallstones identified. No pericholecystic fluid identified. Biliary ducts: Common bile duct is within normal limits measuring up to 0.5 cm in diameter. Pancreas: The pancreas visualized. Right kidney: The right kidney appears unremarkable. No hydronephrosis. Aorta: The visualized aorta is unremarkable. Inferior vena cava: The visualized IVC is unremarkable. Portal venous: The main portal vein is patent with appropriate hepatopetal flow. US/US gall bladder [id number] IMPRESSION: 1. Thickened gallbladder wall noted, but no pericholecystic fluid or gallstones identified. Additionally a negative sonographic Balbuena sign is noted. Low probability for acute cholecystitis. If persistent concern for chronic cholecystitis, recommend HIDA scan. 2. No intra or extrahepatic biliary dilatation.
[2022-04-02 03:46] VITALS: PULSE 80; RESP 16; O2SAT 98
== END 2022-04-02 03:46 | disposition home or self-care (01) ==
PROVIDERS: Physician Assistant; Emergency Provider Emergency Medicine; PCP Family Medicine
DX: R10.10 Upper abdominal pain, unspecified (principal); R11.2 Nausea with vomiting, unspecified; Z79.82 Long term (current) use of aspirin; F17.200 Nicotine dependence, unspecified, uncomplicated; I25.2 Old myocardial infarction; I10 Essential (primary) hypertension; I25.10 Atherosclerotic heart disease of native coronary artery without angina pectoris
CPT/HCPCS: 74176; 76705; 80053; 81001; 83690; 85025; 99283

== ENCOUNTER → 2024-06-09 09:30 | Outpatient (BNVA) | payer OTHER, SELFPAY | PROVIDERS: PCP Family Medicine; Visit Provider Nurse Practitioner Family | DX: I10 Essential (primary) hypertension (principal) | CPT/HCPCS: 80053; 80061 ==

== ENCOUNTER → 2025-06-08 09:30 | Outpatient (BNVA) | payer OTHER, SELFPAY | PROVIDERS: PCP Family Medicine; Visit Provider Nurse Practitioner Family | DX: E78.5 Hyperlipidemia, unspecified (principal) | CPT/HCPCS: 80053; 80061 ==

== ENCOUNTER 2025-06-21 01:30 | Inpatient (IN) | payer OTHER, SELFPAY ==
[2025-06-21] VITALS (26 sets, daily range): BP systolic 142–181; BP diastolic 80–97; PULSE 63–82; RESP 12–18; TEMP 36.3–36.8; O2SAT 92–99; BMI 26.9
--- NOTE | 2025-06-21 01:38 | ECG_ITS ---
[facility] Test Date: 2025-06-21 Pat Name: Dorian Tabares (Eric) Department: Room: Gender: Male In Process Inspector: : 1965 Requested By: Itz Scott Order Number: [id number] Timbo MD: Bhargav Mathews M.D. Measurements Intervals [place] Rate: 73 P: 52 TX: 150 QRS: -2 QRSD: 106 T: 81 QT: 388 QTc: 430 Interpretive Statements SINUS RHYTHM NONSPECIFIC ST & T-WAVE ABNORMALITY No previous ECG available for comparison Electronically Signed On 06-22-2025 22:48:37 CDT by Bhargav Mathews M.D. [email or web address]
--- NOTE | 2025-06-21 01:38 | XRR_ITS ---
PROCEDURE INFORMATION: Exam: XR Chest Exam date and time: 06/21/2025 1:56 AM Age: 59 years old Clinical indication: Pain; Chest pressure; Prior surgery; Surgery date: 6+ months; Surgery type: Cardiac stent; Additional info: Chest pain TECHNIQUE: Imaging protocol: Radiologic exam of the chest. Views: 1 view. COMPARISON: CT abdomen pelvis wo con [id number] 04/02/2022 1:55 AM FINDINGS: Lungs: No confluent consolidation. Pleural spaces: No pleural effusion. No pneumothorax is seen. Heart/Mediastinum: The heart is normal in size. Mediastinal contours are within normal limits. A cardiac stent is noted. Bones/joints: No lytic or blastic lesions. No acute osseous abnormality. Intraperitoneal space: No free air is seen under the diaphragm. XR/XR chest 1V portable [id number] IMPRESSION: No acute pulmonary process.
[2025-06-21 01:43] LABS: Hematocrit 46.1 % (37-53); Hemoglobin 15.20 g/dL (11.27-16.99); Mean Corpuscular HGB Conc 33.0 g/dL (30-55); Mean Corpuscular Hemoglobin 29.6 pg (27-33); Mean Corpuscular Volume 89.7 fl (82-101); Nucleated Red Blood Cells % 0 %; Platelet Count 176 10^3/cmm (157-399); Red Blood Count 5.14 10^6/uL (3.85-5.65); White Blood Count 9.52 10^3/uL (3.29-11.43)
[2025-06-21 02:00] LABS: Troponin(5th) Baseline 18 ng/L (0-15)
[2025-06-21 02:01] LABS: Alanine Aminotransferase 14 U/L (0-41); Albumin Level 4.5 g/dL (3.5-5.2); Alkaline Phosphatase 108 U/L (40-130); Anion Gap 15.8 (5-19); Aspartate Amino Transferase 18 U/L (0-40); Blood Urea Nitrogen 10 mg/dL (8-23); Calcium 9.2 mg/dL (8.5-10.5); Carbon Dioxide 27 mmol/L (22-29); Chloride 101 mmol/L (98-107); Creatinine Clr Calc Pharmacy 91.9736; Globulin 3.0 g/dL (1.3-4.6); Glucose 150 mg/dL (65-115); Osmolality Calculated 292 mOsm/kg (285-295); Potassium 3.8 mmol/L (3.5-5.1); Sodium 140 mmol/L (136-145); Total Protein 7.5 g/dL (6.6-8.7)
--- NOTE | 2025-06-21 02:46 | ED_ITS ---
HPI - Chest Pain 2 General: Chief Complaint: Chest Pain Stated Complaint: Tightness in Chest Time Seen by Provider: 06/21/25 01:37 History of Present Illness: 59 yo M with Hx of NC in 2011 s/p smith ry stent presents with acute chest tightness that woke him from sleep about 2 hours prior to ED arrival. He took two nitroglycerin tablets without relief; takes daily baby aspirin. Rates pain 7?8/10. Denies dizziness, weakness, nausea, vomiting. States current pain differs from 2012 NC when he had numbness in fingers and radiation to left arm; no numbness now. notes he was tossing and turning; reports he has not been able to use the restroom. Ate tacos earlier; took Pepto-Bismol. 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 Vanessa (retired) and currently sees an MAINTENANCE REPRESENTATIVE in [place] mainly for Rx renewals. Initial EKG reported as not concerning; no prior EKGs/echos in this system. Related Data Home Medications ?Medication ?Instructions ?Recorded ?Confirmed aspirin 81 mg chewable tablet 81 mg PO QDAY 11/20/19 0 06/08/25 (Haydee Chewable Low Dose Aspirin) Previous Rx's ?Medication ?Instructions ?Recorded Sole Supports #1 ea 11/20/19 sole supports #1 ea 02/26/20 sole supports #1 ea 03/14/20 nitroglycerin 0.4 mg sublingual See Rx Instructions .R oute 11/24/23 tablet .COMPLEX #25 tabs amlodipine 10 mg-benazepril 40 mg 1 cap PO DAILY #90 c aps 06/08/25 capsule metoprolol tartrate 25 mg tablet 25 mg PO BID #180 tab s 06/08/25 Allergies Allergy/AdvReac Type Severity Reaction Status Date / Time No Known Allergies Allergy Verified 06/08/25 09:37 [facility] ED 2 [facility]: Medical History (Updated 06/21/25 @ 04:10 by Itz Hauser MD) Non-ST elevation [place] (NSTEMI) CAD (coronary artery disease) Glucose intolerance (impaired glucose tolerance) Presence of stent in left circumflex coronary artery Dyslipidemia Essential hypertension Surgical History Hx of coronary angioplasty Social History (Reviewed 07/02/23 @ 09:33 by Yarelis Terrazas Smoking and tobacco/nicotine status: current every day tobacco/nicotine user Alcohol intake: never Substance/Drug Use: never Marital status: Current occupational status: employed Physical Exam 2 Const: COMMON NORMALS: no acute distress, patient oriented x3 and alert HENMT: COMMON NORMALS: normocephalic and atraumatic HEAD & SCALP: n ormocephalic and atraumatic Eye: COMMON NORMALS: Equal, round and reactive pupils present, EOMs intact bilaterally and no scleral icterus PUPIL: Yes Equal, round and reactive pupils present Resp: COMMON NORMALS: normal respiratory effort and No retractions Cardio: COMMON NORMALS: regular rate, regular rhythm and No murmurs present (Cardio) RATE: regular rate RHYTHM: regular rhythm GI: COMMON NORMALS: Normal to inspection, nondistended, normoactive bowel sounds present, Soft to palpation and non-tender PALPATION: Yes Soft to palpation Neuro: COMMON NORMALS: patient oriented x3 SENSORIUM/ORIENTATION: Yes alert Skin: COMMON NORMALS: no rashes or lesions noted GENERAL SKIN EXAM: no rashes or lesions noted Course 2 Vital Signs: Vital signs: Vital Signs Temperature 97.9 F 06/21/25 01:39 Pulse Rate 68 06/21/25 04:14 Respiratory Rate 12 06/21/25 03:15 Blood Pressure 154/85 06/21/25 04:14 Pulse Oximetry 97 06/21/25 04:14 Oxygen Delivery Me thod Room Air 06/21/25 04:14 MDM - Chest Pain Medical Decision Making 59 yo M with prior NC and coronary stent presents with acute chest tightness waking from sleep, 7?8/10, not relieved by two nitro; denies dizziness, weakness, N/V. Pain differs from prior NC episode that had left arm numbness. Pertinent vital signs not available. PE: chest pain not reproducible with palpation or deep inspiration; RRR; lungs clear; abdomen soft with mild epigastric tenderness; no LE edema. EKG: no ST-segment changes or T-wave inversions. Chest x-ray shows nothing acute. Chest pain: ACS considered given age, prior NC, nocturnal onset; EKG non- ischemic. Atypical features present; GI sources including dyspepsia or biliary colic considered given epigastric tenderness and food association. Definitive assessment pending troponin kinetics. Plan: Serial troponins at least twice with appropriate interval; repeat EKG if pain worsens. Symptomatic meds given for pressure. Cardiology to be contacted if troponin rises or new ischemic changes appear; discharge considered if serial troponins negative and symptoms improve. Initial EKG, chest x-ray, and labs are all reassuring. Repeat troponin however shows significant increase concerning for NSTEMI. Repeat EKG again shows no ST segment changes. Patient is now pain-free and symptom-free. Blood pressure stable. I spoke with the on-call hospitalist who agrees to admit the patient for further observation and trending of troponin and consideration for repeat catheterization not emergently with cardiology. Lab Data 06/21/25 01:38 06/21/25 01:38 Radiology Impressions Chest X-Ray 06/21/25 01:38 IMPRESSION: No acute pulmonary process. Laboratory Results WBC 9.52 10^3/uL (3.29-11.43) 06/21/25 01:38 RBC 5.14 10^6/uL (3.85-5.65) 06/21/25 01:38 Hgb 15.20 g/dL (11.27-16.99) 06/21/25 01:38 Hct 46.1 % (37-53) 06/21/25 01:38 MCV 89.7 fl (82-101) 06/21/25 01:38 MCH 29.6 pg (27-33) 06/21/25 01:38 MCHC 33.0 g/dL (30-55) 06/21/25 01:38 RDW 13.5 % (12.1-15.1) 06/21/25 01:38 Plt Count 176 10^3/cmm (157-399) 06/21/25 01:38 MPV 9.9 fL (7.4-10.4) 06/21/25 01:38 Neut % (Auto) 62.1 % 06/21/25 01:38 Lymph % (Auto) 27.0 % 06/21/25 01:38 Dewitt % (Auto) 7.9 % 06/21/25 01:38 Eos % (Auto) 2.3 % 06/21/25 01:38 Baso % (Auto) 0.5 % 06/21/25 01:38 Neut # (Auto) 5.91 10^3/uL (1.8-7.7) 06/21/25 01:38 Lymph # (Auto) 2.6 10^3/uL (0.8-4.8) 06/21/25 01:38 Dewitt # (Auto) 0.8 10^3/uL (0.2-0.9) 06/21/25 01:38 Eos # (Auto) 0.2 10^3/uL (0.0-0.8) 06/21/25 01:38 Baso # (Auto) 0.1 10^3/uL (0.0-0.1) 06/21/25 01:38 Nucleated RBC % (auto) 0 % 06/21/25 01:38 Nucleated RBCs # 0.0 /100WBC 06/21/25 01:38 Sodium 140 mmol/L (136-145) 06/21/25 01:38 Potassium 3.8 mmol/L (3.5-5.1) 06/21/25 01:38 Chloride 101 mmol/L (98-107) 06/21/25 01:38 Carbon Dioxide 27 mmol/L (22-29) 06/21/25 01:38 Anion Gap 15.8 (5-19) 06/21/25 01:38 BUN 10 mg/dL (8-23) 06/21/25 01:38 Creatinine 0.9 mg/dL (0.7-1.2) 06/21/25 01:38 GFR Calculation 85.8 mL/min (90-130) L 06/21/25 01:38 Glucose 150 mg/dL (65-115) H 06/21/25 01:38 Calculated Osmolality 292 mOsm/kg (285-295) 06/21/25 01:38 Calcium 9.2 mg/dL (8.5-10.5) 06/21/25 01:38 Total Bilirubin 0.3 mg/dL (0.15-1.2) 06/21/25 01:38 AST 18 U/L (0-40) 06/21/25 01:38 ALT 14 U/L (0-41) 06/21/25 01:38 Alkaline Phosphatase 108 U/L (40-130) 06/21/25 01:38 Troponin T Baseline 18 ng/L (0-15) H 06/21/25 01:38 Troponin T 120 Minute 46.48 ng/L (0-15) H 06/21/25 02:44 Delta Troponin T 28.48 ABS# (0-10) H* 06/21/25 02:44 Total Protein 7.5 g/dL (6.6-8.7) 06/21/25 01:38 Albumin 4.5 g/dL (3.5-5.2) 06/21/25 01:38 Globulin 3.0 g/dL (1.3-4.6) 06/21/25 01:38 All radiology interpretation(s) finalized by discharge EKG Data EKG 1: Interpretation: Time?0134?sinus rhythm, rate of 73, no ST segment elevation or depression, no T wave inversions, QTc = 414 EKG 2: Interpretation: Time?0406?sinus rhythm with incomplete right bundle branch block, rate of 73, no ST segment elevation or depression, no T wave inversions, QTc = 405 Discharge Plan Discharge Patient Disposition: Admitted As Inpatient Admit Provider: Bailey Velasquez Clinical Impression: Acute non-ST elevation myocardial infarction (NSTEMI) Condition: Stable Coding Level of Care Code ED Safety Teacher for Giovani Loza
[2025-06-21] MEDS: lidocaine 2% viscous 15 ML, aluminum-mag hydrox-simethicon 30 ML, sucralfate oral liq 1 GM PO (03:01)
[2025-06-21 03:44] LABS: Troponin 5 2HR 46.48 ng/L (0-15)
[2025-06-21 03:55] LABS: Troponin 5 2HR Delta 28.48 ABS# (0-10)
--- NOTE | 2025-06-21 04:06 | ECG_ITS ---
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 Measurements Intervals [place] Rate: 73 P: 37 CO: 147 QRS: -3 QRSD: 106 T: 69 QT: 379 QTc: 420 Interpretive Statements SINUS RHYTHM INCOMPLETE RIGHT BUNDLE BRANCH BLOCK [90+ ms QRS DURATION, TERMINAL R IN V1/V2, 40+ ms S IN I/aVL/V4/V5/V6] NONSPECIFIC T-WAVE ABNORMALITY Compared to ECG 06/21/2025 01:34:00 Incomplete right bundle-branch block now present T-wave abnormality still present Electronically Signed On 06-22-2025 22:48:33 CDT by Bhargav Mathews M.D. [id number] [id number]
[2025-06-21] MEDS: morphine 4 mg/mL SDV 1 mL IVP (04:11)
--- NOTE | 2025-06-21 06:10 | P.HP_ITS ---
Providers/Chief Complaint 2 Admitting Physician: Bailey Velasquez MD--patient seen and evaluated after 12 midnight Primary Care Provider: Richard Coronel DO Chief Complaint: Tightness in Chest History of Present Illness Dorian(Zafar Tabares is a 59 year old male with medical history significant for nicotine addiction for over 40 years smoking approximately 1 pack of cigarettes a day, history of myocardial infarction with stent placement in 2011, presenting to the emergency room for an atypical chest pain. Patient tells me he had 2 nitros prior to coming to the emergency room 1 at 11 :30 PM and then another 1 at 11:45 PM He also had Pepto-Bismol at home trying to relieve the chest pain. At presentation to the emergency room patient received GI cocktail and that instantly relieved the pain. Patient did not have any further chest pain at the time of my being consulted by the emergency room attending Dr. Hauser. I have seen and evaluated patient in the emergency room patient is chest pain-free initial troponin was 18 and his second troponin 2-hour was 44.4 with a delta at 28.48 elevated. Patient desires to be treated and was admitted for care. Cardiology consulted with Dr. Martinez and case fully discussed Review of Systems 2 Narrative: System review upon 10 organ reviewed we are significant for cardiovascular with an atypical chest pains otherwise unremarkable system review Medications/Allergies Home Medications ?Medication ?Instructions ?Recorded ?Confirmed ?Last Taken ?Type Sole Supports #1 ea 11/20/19 06/08/25 Unkn own Rx aspirin 81 mg chewable tablet 81 mg PO QDAY 11/20/19 0 06/08/25 08/12/20 History (Haydee Chewable Low Dose Aspirin) sole supports #1 ea 02/26/20 06/08/25 Unkn own Rx sole supports #1 ea 03/14/20 06/08/25 Unkn own Rx nitroglycerin 0.4 mg sublingual See Rx Instructions .R oute 11/24/23 06/08/25 Unknown Rx tablet .COMPLEX #25 tabs amlodipine 10 mg-benazepril 40 mg 1 cap PO DAILY #90 c aps 06/08/25 06/08/25 Unknown Rx capsule metoprolol tartrate 25 mg tablet 25 mg PO BID #180 tab s 06/08/25 06/08/25 Unknown Rx Allergies Allergy/AdvReac Type Severity Reaction Status Date / Time No Known Allergies Allergy Verified 06/08/25 09:37 PFSH Acute 2 PFSH: Medical History Non-ST elevation [place] (NSTEMI) CAD (coronary artery disease) Glucose intolerance (impaired glucose tolerance) Presence of stent in left circumflex coronary artery Dyslipidemia Essential hypertension Surgical History Hx of coronary angioplasty Social History Smoking and tobacco/nicotine status: current every day tobacco/nicotine user Alcohol intake: never Substance/Drug Use: never Marital status: Current occupational status: employed Vitals/I&O/Wt Last Vital Signs Temp 97.9 F 06/21/25 01:39 Pulse 69 06/21/25 05:15 Resp 12 06/21/25 03:15 BP 163/94 06/21/25 05:15 Pulse Ox 96 06/21/25 05:15 O2 Del Method Room Air 06/21/25 05:15 Weight last 48 hrs Weight 82.554 kg Physical Exam 2 Narrative: Mild patient is not ill-appearing sitting up in bed at 90 degrees with concerns of the chest pain that he has been having. HEENT normocephalic atraumatic neck neck is supple cardiovascular heart rate is regular lungs are pretty much clear abdomen soft nontender nondistended unremarkable extremities are intact no edema has good pulses neurology has no focality lab studies lab studies reviewed and noted. Data 06/21/25 01:38 06/21/25 01:38 A&P Assessment and plan 1. Acute non-ST elevation myocardial infarction (NSTEMI): 2. Atypical chest pain: 3. Nicotine addiction: Plan: #1 Atypical chest pain with troponin elevation -Patient received full aspirin at evaluation at this time. -Patient is with no chest pain at the time of my evaluation at this time. -Patient to be seen by cardiology for any other input -Patient with a history of myocardial infarction with stent placement in 2011 -Cardiology may decide stress test versus cath, follow-up with recommendation of cardiology patient had been made n.p.o. #2 NSTEMI -Patient with a history follow-up with cardiology recommendation patient is not actively having chest pain -Patient is not on heparin because patient had be pain-free from the ED on GI cocktail x 1 #3 GI and DVT prophylaxis in place #4 Nicotine addiction -Patient is actively and currently smoking cigarettes on average of 1 pack of cigarettes a day has been smoking since age [age] years of age and although was over 40 years. Patient is 59 - and patient verbalized that patient is not opening up to have a desire to stop smoking PDMP PDMP Reviewed: Last Reviewed 06/21/25 06:13 by Bailey Velasquez MD Attestations 2 Medical Necessity Statement*: Patient with atypical chest pain but with a history of coronary artery disease stent placement with troponin elevation will need to be placed under observation at this time for optimization of care for at least 23 hours stay Coding Level of Care Code 61132 Diagnoses Acute non-ST elevation myocardial infarction (NSTEMI) I21.4 Atypical chest pain R07.89 Nicotine addiction F17.200 Time Spent (min) 60
[2025-06-21 06:30] LABS: Hematocrit 44.8 % (37-53); Hemoglobin 14.50 g/dL (11.27-16.99); Mean Corpuscular HGB Conc 32.4 g/dL (30-55); Mean Corpuscular Hemoglobin 29.6 pg (27-33); Mean Corpuscular Volume 91.4 fl (82-101); Nucleated Red Blood Cells % 0 %; Platelet Count 163 10^3/cmm (157-399); Red Blood Count 4.90 10^6/uL (3.85-5.65); White Blood Count 7.80 10^3/uL (3.29-11.43)
[2025-06-21] MEDS: heparin 5,000 unit/mL INJ 1 mL 5000 UNIT SUBCUT (06:39)
[2025-06-21 06:51] LABS: Magnesium 2.1 mg/dL (1.7-2.3)
--- NOTE | 2025-06-21 08:21 | USCV_ITS ---
Dorian Tabares(Wyatt) Age: 59 Gender: M : 1965 Exam Date: 06/21/2025 08:45 Ordering Phys: Rosario Andrea Technologist: Exam Location: [facility] [place] Indication: sob cp BP: 156 / 82 HR: 67 Rhythm: Sinus Technical Quality: Adequate MEASUREMENTS (Male / Female) Normal Values 2D ECHO LV Diastolic Diameter PLAX 4.7 cm 4.2 - 5.9 / 3.9 - 5.3 cm IVS Diastolic Thickness 1.3 cm 0.6 - 1.0 / 0.6 - 0.9 cm IVS Systolic Thickness 1.8 cm LVPW Diastolic Thickness 1.5 cm 0.6 - 1.0 / 0.6 - 0.9 cm LVPW Systolic Thickness 1.9 cm LVOT Diameter 2.1 cm LV Ejection Fraction 2D Teich 67.4 % LV Ejection Fraction MOD 4C 69.8 % LV Ejection Fraction MOD 2C 72.1 % LV Ejection Fraction 2C AL 73.6 % LA Diameter 4.2 cm RA Systolic Volume 4C AL 44.0 ml RA Systolic Volume 4C MOD 42.8 ml LA Sys Volume AL 44.8 cm cubed LA Sys Volume Index AL 20.4 cm cubed/m squared Aorta at Sinotubular Diameter 3.2 cm M-MODE LA Ao Ratio MM 1.1 AV Cusp Separation MM 2.4 cm DOPPLER AV Peak Velocity 132.0 cm/s LVOT Peak Velocity 97.0 cm/s AV Area Cont Eq vti 3.0 cm squared AV Area Cont Eq pk 2.6 cm squared MV Peak Velocity 111.0 cm/s MV Area PHT 4.6 cm squared Mitral E to A Ratio 1.1 TV Peak Velocity 175.0 cm/s TR Peak Velocity 184.0 cm/s TR Peak Gradient 13.5 mmHg TV Peak E Velocity 88.0 cm/s PV Peak Velocity 95.0 cm/s FINDINGS Left Ventricle Normal left ventricular size. Mild hypokinesis of the mid inferoseptal and anteroseptal wall segments with overall normal ejection fraction of 67%. Mild concentric left ventricular hypertrophy. Normal left ventricular diastolic function. Right Ventricle Normal right ventricular size and systolic function. Normal right ventricular systolic pressure. Right Atrium Normal right atrial size. Left Atrium Mildly increased left atrial size. Mitral Valve No mitral valve stenosis. No mitral valve regurgitation. Aortic Valve No aortic valve stenosis. No aortic valve regurgitation. Tricuspid Valve Trace tricuspid valve regurgitation. Pulmonic Valve No pulmonary valve stenosis. No pulmonary valve regurgitation. Pericardium No pericardial effusion. Aorta Normal size aortic root. IVC Inferior vena cava not visualized. CONCLUSIONS 1. Normal left ventricular size. Mild hypokinesis of the mid anterior septum and mid inferior septum with overall normal ejection fraction of 67%. 2. Mild left atrial enlargement 3. No significant valvular abnormalities. 4. Normal right ventricular size and systolic function. Mika Kong MD, FACC (Electronically Signed) Final Date: 21 June 2025 17:20 S
--- NOTE | 2025-06-21 08:33 | ECG_ITS ---
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 Measurements Intervals [place] Rate: 70 P: 54 [place]: 150 QRS: -14 QRSD: 121 T: 74 QT: 376 QTc: 408 Interpretive Statements SINUS RHYTHM POSSIBLE RIGHT VENTRICULAR CONDUCTION DELAY [RSR (QR) IN V1/V2] NONSPECIFIC T-WAVE ABNORMALITY Compared to ECG 06/21/2025 04:06:24 Incomplete right bundle-branch block no longer present T-wave abnormality still present Electronically Signed On 06-22-2025 22:44:24 CDT by Bhargav Mathews M.D. [email or web address] [id number]
[2025-06-21 09:14] LABS: Troponin T (5th) Once 977 ng/L (0-15)
--- NOTE | 2025-06-21 09:26 | P.CONIM_ITS ---
<Statement entered by John Martinez MD - 06/21/25 20:06> Patient was evaluated and cared for in conjunction with an advanced practice practitioner. I personally examined the patient and reviewed the chart and all pertinent data including imaging, telemetry, and laboratory results. I discussed the patient in detail with the advanced practice practitioner. Please see their note for complete H&P testing result and agreed upon plan of care for the patient. Providers/Reason For Consult 2 Consulting Physician/Specialty*: Dr Spencer Martinez, interventional cardiology Reason for Consult*: NSTEMI, chest pain Requesting Physician: Dr. Velasquez Attending Physician: Cristian Huggins DO Primary Care Provider: Richard Coronel DO History of Present Illness History of Present Illness Dorian(Wyatt) Charbel Tabares is a 59 year old male with past medical history of CAD, history of NSTEMI, PCI to the circumflex in 2011, hypertension, hyperlipidemia, smoking. He presented to the emergency room early this morning with severe substernal chest pain that woke him from sleep. He had no improvement of the pain with nitroglycerin x 2, no improvement with Pepto-Bismol. Troponin series: 18-> 46-> 977. EKG showed sinus rhythm with nonspecific T wave abnormalities. I have ordered echocardiogram, pending read. CBC unremarkable, normal renal function, normal liver function. Lipid panel 06/08/2025: Triglycerides 192, total cholesterol 198, LDL-C 134, HDL 26. He is chest pain-free currently. He was loaded with aspirin this morning, currently on heparin infusion. Review of Systems 2 Const: Denies: fever(s), chills, change in weight, fatigue or diaphoresis Eyes: Denies: change in vision ENMT: Denies: epistaxis Card: Reports: chest pain; Denies: palpitations, irregular heart rhythm, edema, syncope, pre-syncope, dyspnea on exertion, orthopnea or leg pain with exertion Resp: Denies: dyspnea, productive cough or wheezing GI: Denies: nausea, vomiting, hematemesis, hematochezia or melena : Denies: hematuria Musc: Denies: extremity swelling Sanjay/Lymph: Denies: easy bruising or easy bleeding Medications/Allergies Home Medications ?Medication ?Instructions ?Recorded ?Confirmed ?Last Taken ?Type Sole Supports #1 ea 11/20/19 06/21/25 Unkn own Rx aspirin 81 mg chewable tablet 81 mg PO QDAY 11/20/19 0 06/21/25 06/20/25 History (Haydee Chewable Low Dose Aspirin) sole supports #1 ea 02/26/20 06/21/25 Unkn own Rx sole supports #1 ea 03/14/20 06/21/25 Unkn own Rx nitroglycerin 0.4 mg sublingual See Rx Instructions .R oute 11/24/23 06/21/25 Unknown Rx tablet .COMPLEX #25 tabs amlodipine 10 mg-benazepril 40 mg 1 cap PO DAILY #90 c aps 06/08/25 06/21/25 06/20/25 Rx capsule metoprolol tartrate 25 mg tablet 25 mg PO BID #180 tab s 06/08/25 06/21/25 06/20/25 Rx Allergies Allergy/AdvReac Type Severity Reaction Status Date / Time No Known Allergies Allergy Verified 06/08/25 09:37 Current Medications Generic Name Dose Route Start Last Admin Trade Name Freq PRN Reason Stop Dose Admin Heparin Sodium (Porcine) 5,000 unit 06/21/25 06:15 06/21/25 06:39 Heparin 5,000 Unit/Ml Inj 1 Ml SUBCUT 5,000 unit Q12H ANU Administration Sodium Chloride 1,000 mls @ 75 mls/hr 06/21/25 06:00 06/21/25 06:40 Sodium Chloride 0.9% IV 75 mls/hr .[id number] ANU Administration PFSH Acute 2 PFSH: Medical History Non-ST elevation [place] (NSTEMI) CAD (coronary artery disease) Glucose intolerance (impaired glucose tolerance) Presence of stent in left circumflex coronary artery Dyslipidemia Essential hypertension Surgical History Hx of coronary angioplasty Social History Smoking and tobacco/nicotine status: current every day tobacco/nicotine user Alcohol intake: never Substance/Drug Use: never Marital status: Current occupational status: employed Vitals/I&O/Wt Last Vital Signs Temp 97.9 F 06/21/25 01:39 Pulse 63 06/21/25 07:43 Resp 16 06/21/25 07:43 BP 142/80 06/21/25 07:43 Pulse Ox 92 06/21/25 07:43 O2 Del Method Room Air 06/21/25 07:43 Weight last 48 hrs Weight 182 lb Physical Exam 2 Const: COMMON NORMALS: no acute distress and patient oriented x3 GENERAL APPEARANCE: cooperative and comfortable ORIENTATION/CONSCIOUSNESS: Yes awake, Yes oriented to person, Yes oriented to place and Yes oriented to time Chest: COMMONS NORMALS: normal inspection of the chest and normal palpation of entire chest wall CHEST: Yes Symmetrical chest wall rise Resp: COMMON NORMALS: normal respiratory effort, No retractions, No use of accessory muscles and clear to auscultation bilaterally EFFORT & INSPECTION: Yes symmetric chest movement AUSCULTATION: clear to auscultation bilaterally Cardio: COMMON NORMALS: regular rate, regular rhythm, S1 normal heart sound present, S2 normal heart sound present, No gallops present (Cardio), No clicks present (Cardio), No murmurs present (Cardio) and No rub (Cardio) RATE: r egular rate RHYTHM: regular rhythm HEART SOUNDS: S1 normal heart sound present and S2 normal heart sound present PERIPHERAL PULSES: radial pulses present Extremity: COMMON NORMALS: no pedal edema Neuro: COMMON NORMALS: patient oriented x3 and moves all extremities S ENSORIUM/ORIENTATION: Yes oriented to person, Yes oriented to place and Yes oriented to time Data 06/21/25 06:25 06/21/25 01:38 A&P Assessment and plan 1. CAD (coronary artery disease): 2. Acute non-ST elevation myocardial infarction (NSTEMI): 3. Tobacco abuse: 4. Dyslipidemia: 5. Essential hypertension: Plan: He ruled in for NSTEMI, currently chest pain-free, we will plan for coronary angiogram in the morning. N.p.o. after midnight tonight. He can eat today. Continue heparin infusion. PDMP PDMP Reviewed: Not Reviewed Coding Level of Care Code Acute Code for g Fwd Diagnoses CAD (coronary artery disease) I25.10 Acute non-ST elevation myocardial infarction (NSTEMI) I21.4 Tobacco abuse Z72.0 Dyslipidemia E78.5 Essential hypertension I10
--- NOTE | 2025-06-21 09:39 | PC.NURSE ---
per dr. vann, give Losartan 25mg one time dose now.
--- NOTE | 2025-06-21 09:43 | PC.NURSE ---
critical lab troponin 977 called to Rosario Andrea. verbalized understanding and her and dr. vann came and seen patient. orders to follow.
--- NOTE | 2025-06-21 15:44 | PM.MISC ---
Miscellaneous Note Purpose of Documentation: Brief interview and physical exam Note: Patient was admitted after midnight last night approximately 6 AM. Patient has a non-STEMI. Cardiology has been consulted. Patient placed on heparin and plans for cardiac cath tomorrow. Patient denies any chest pain. Heart is regular rate and rhythm normal S1-S2 no murmurs clicks gallops or rubs lungs clear to auscultation anteriorly abdomen soft nontender nondistended positive bowel sounds
[2025-06-22] VITALS (7 sets, daily range): BP systolic 132–179; BP diastolic 76–106; PULSE 64–83; RESP 12–22; TEMP 36.5–36.8; O2SAT 92–96; BMI 25.6
[2025-06-22 04:41] LABS: Alanine Aminotransferase 38 U/L (0-41); Albumin Level 3.7 g/dL (3.5-5.2); Alkaline Phosphatase 85 U/L (40-130); Anion Gap 13.9 (5-19); Aspartate Amino Transferase 56 U/L (0-40); Blood Urea Nitrogen 11 mg/dL (8-23); Calcium 8.8 mg/dL (8.5-10.5); Carbon Dioxide 25 mmol/L (22-29); Chloride 106 mmol/L (98-107); Creatinine Clr Calc Pharmacy 103.5169; Globulin 3.1 g/dL (1.3-4.6); Glucose 94 mg/dL (65-115); Osmolality Calculated 291 mOsm/kg (285-295); Potassium 3.9 mmol/L (3.5-5.1); Sodium 141 mmol/L (136-145); Total Protein 6.8 g/dL (6.6-8.7)
[2025-06-22 07:33] LABS: Troponin T (5th) Once 827 ng/L (0-15)
--- NOTE | 2025-06-22 09:03 | PC.NURSE ---
critical lab value called by lab this morning for a troponin of 267. Physician already aware of critical lab value.
--- NOTE | 2025-06-22 09:45 | PC.CHAP ---
Pastoral Care Encounter/Spiritual Assessment Type of Contact [] Declined energy project engineer visit [] Patient/Family/Request visit [] Outpatient visit [] Follow-up visit [] Physician referral [] Code/Alert [x] Routine visit [] Staff referral [] Actively dying [] Patient sleeping [] Family support [] [] Out of room [] Palliative care [] [] Receiving care in room [] Pre-surgical visit [] Trauma [] Long length of stay [] ICU visit [] Other: Relational/Emotional Strength [x] Patient feels connected with others/family/visitors/staff [] Distress [] Loneliness/isolation [] Abandonment Spirituality of Patient [x] Person of Usha [] Attends Latter Day of their Usha [x] Believes in Prayer [] Reads Bible or Druze materials [] There are Spiritual issues to be addressed Sports Agent Interventions [x] Prayer [x] Active listening [] Non-anxious presence [x] Spiritual/emotional support [] Crisis/trauma care [] Spiritual counseling [] Bereavement support [] Provided bereavement packet [] Provided Bible/devotional materials [] Provided toy/stuffed animal, coloring book to patient or family member [] Provided Communion [] Anointing/Hamlet [] Salvation [x] Completed spiritual assessment [] Other: Impact on Illness or Injury [] Angry [] Fearful [] Anxious [] Often cries [] Exhaustion [] Unable to work [] Unable to attend hindu [] Unable to walk/stand [] Unable to read [] Unable to drive [] Unable to eat/drink [] Unable to sleep [] Unable to be with family [] Patient intubated [] Other: Summary Time spent with patient 5 min
--- NOTE | 2025-06-22 11:07 | P.PN_ITS ---
<Statement entered by John Martinez MD - 06/22/25 18:53> Patient was evaluated and cared for in conjunction with an advanced practice practitioner. I personally examined the patient and reviewed the chart and all pertinent data including imaging, telemetry, and laboratory results. I discussed the patient in detail with the advanced practice practitioner. Please see their note for complete H&P testing result and agreed upon plan of care for the patient. Denies any chest pain GENERAL: Patient is alert, awake and oriented x3. HEART: Regular S1 and S2. No murmur, rub or gallop. LUNGS: Clear to auscultate bilaterally. CENTRAL NERVOUS SYSTEM: Grossly nonfocal. EXTREMITIES: Lower extremities with out edema bilaterally. Assessment and plan [id number] Hypertension Hyperlipidemia Continue current management for acute coronary syndrome including anticoagulation Due to unavailability of Elevator Tender secondary to technical problem possible left heart catheter tomorrow since patient is stable and chest pain-free Subjective 2 Subjective: No chest pain overnight. He remains n.p.o. for coronary angiography today Vitals/I&O/Wt Last Vital Signs Temp 98.0 F 06/22/25 07:49 Pulse 73 06/22/25 07:49 Resp 13 06/22/25 07:49 BP 142/86 06/22/25 07:49 Pulse Ox 95 06/22/25 07:49 O2 Del Method Room Air 06/22/25 07:49 06/21/25 06/22/25 06/22/25 22:59 06:59 14:59 Intake Total 480 / 2175 1000 / 2175 Balance 480 / 1775 1000 / 1775 Weight last 48 hrs Weight 173 lb 7 oz Weight 182 lb 3 oz Weight 182 lb Physical Exam 2 Const: COMMON NORMALS: no acute distress and patient oriented x3 GENERAL APPEARANCE: cooperative and comfortable ORIENTATION/CONSCIOUSNESS: Yes awake, Yes oriented to person, Yes oriented to place and Yes oriented to time Chest: COMMONS NORMALS: normal inspection of the chest and normal palpation of entire chest wall CHEST: Yes Symmetrical chest wall rise Resp: COMMON NORMALS: normal respiratory effort, No retractions, No use of accessory muscles and clear to auscultation bilaterally EFFORT & INSPECTION: Yes symmetric chest movement AUSCULTATION: clear to auscultation bilaterally Cardio: COMMON NORMALS: regular rate, regular rhythm, S1 normal heart sound present, S2 normal heart sound present, No gallops present (Cardio), No clicks present (Cardio), No murmurs present (Cardio) and No rub (Cardio) RATE: r egular rate RHYTHM: regular rhythm HEART SOUNDS: S1 normal heart sound present and S2 normal heart sound present PERIPHERAL PULSES: radial pulses present Extremity: COMMON NORMALS: no pedal edema Neuro: COMMON NORMALS: patient oriented x3 and moves all extremities S ENSORIUM/ORIENTATION: Yes oriented to person, Yes oriented to place and Yes oriented to time Data 06/21/25 06:25 06/22/25 03:51 A&P Assessment and plan 1. Acute non-ST elevation myocardial infarction (NSTEMI): 2. CAD (coronary artery disease): 3. Dyslipidemia: 4. Essential hypertension: 5. Tobacco abuse: Plan: Coronary angiogram today, remain NPO. Chest pain free currently. PDMP PDMP Reviewed: Not Reviewed Attestations 2 Medical Necessity Statement*: NSTEMI, cath today Coding Level of Care Code Acute Code for [facility] Diagnoses Acute non-ST elevation myocardial infarction (NSTEMI) I21.4 CAD (coronary artery disease) I25.10 Dyslipidemia E78.5 Essential hypertension I10 Tobacco abuse Z72.0
--- NOTE | 2025-06-22 13:45 | P.PN_ITS ---
Subjective 2 Subjective: Denies chest pain or pressure Denies shortness of breath Denies nausea. Vitals/I&O/Wt Last Vital Signs Temp 98.0 F 06/22/25 11:50 Pulse 72 06/22/25 11:50 Resp 12 06/22/25 11:50 BP 162/90 06/22/25 11:50 Pulse Ox 96 06/22/25 11:50 O2 Del Method Room Air 06/22/25 11:50 06/21/25 06/22/25 06/22/25 22:59 06:59 14:59 Intake Total 480 / 1175 1000 / 2175 Balance 480 / 775 1000 / 1775 Weight last 48 hrs Weight 78.67 kg Weight 82.639 kg Weight 82.554 kg Physical Exam 2 Narrative: Heart is regular rate and rhythm normal S1-S2 no murmurs clicks gallops or rubs lungs clear to auscultation anteriorly abdomen soft nontender nondistended positive bowel sounds Extremities no clubbing cyanosis or edema Data 06/21/25 06:25 06/22/25 03:51 A&P Assessment and plan 1. Acute non-ST elevation myocardial infarction (NSTEMI): 2. CAD (coronary artery disease): 3. Dyslipidemia: 4. Essential hypertension: 5. Tobacco abuse: Plan: Coronary angiogram today, remain NPO. Chest pain free currently. PDMP PDMP Reviewed: Not Reviewed Attestations 2 Medical Necessity Statement*: NSTEMI, cath today Coding Level of Care Code Acute Code for [facility] Diagnoses Acute non-ST elevation myocardial infarction (NSTEMI) I21.4 CAD (coronary artery disease) I25.10 Dyslipidemia E78.5 Essential hypertension I10 Tobacco abuse Z72.0
[2025-06-23] VITALS (8 sets, daily range): BP systolic 131–171; BP diastolic 78–101; PULSE 77–112; RESP 16–35; TEMP 36.6–36.9; O2SAT 96–98; BMI 25.7
--- NOTE | 2025-06-23 10:10 | PC.NURSE ---
to cardiac microbiological laboratory technician at this time via w/c
--- NOTE | 2025-06-23 10:38 | W.PM.OPSUD ---
Surgery/Procedure H&P Update DATE OF PROCEDURE: June 23, 2025 DATE H&P PERFORMED: 06/21/25 H&P UPDATE INFORMATION: I have reviewed H&P completed within last 30 days, I have examined patient prior to procedure and No changes to prior documentation PREOP DIAGNOSIS: [id number] M PATIENT REASSESSED PRIOR TO SEDATION, WITH NO CHANGE NOTED: Yes PHYSICAL EXAM: alert, oriented x 3, clear to auscultation bilaterally, regular rate & rhythm and operative site marked AIRWAY EVAL/ANESTHESIA PLAN: ASA II, Risks, benefits & alternatives of sedation and/or procedure discussed and Patient agrees to continue as planned ADDITIONAL INFORMATION: Patient has been explained all risk-benefit and alternative for the procedure. Patient understand 2% risk of stroke major bleed. Patient understand 5% risk of minor bleeding bruising infection hematoma pseudoaneurysm contrast induced nephropathy urgent emergent vascular or cardiothoracic surgery. Patient clearly understood it and would like to proceed with it
--- NOTE | 2025-06-23 11:28 | P.PCN_ITS ---
Procedure Note: Date of procedure: 06/23/25 Pre-procedure diagnosis: [id number] Procedure: Left heart cath was performed Left main was normal LAD has luminal irregularity without significant stenosis Left circumflex is tortuous moderate-sized in caliber vessel with significant mid [place] and in-stent restenosis in the proximal to mid segment of previously placed stent in 2015, it is the culprit vessel RCA has mid moderate 60 to 70% stenosis rest of vessel luminal irregularity it is a tortuous vessel, it appeared to be nonsignificant PCI: PCI to mid circumflex for [place] lesion and in-stent restenosis treated with single long drug-eluting stent 3.0 x 34 mm Ben postdilated with 3.5 x 15 mm noncompliant balloon at high inflation. Good angiographic result ROSETTE-3 flow was noticed. Recurrent atrial branch was jailed off with compromised flow howev er it started coming back. Overall good angiographic result with ROSETTE-3 flow was noted in the circumflex. Patient tolerated procedure well and being transferred back to the floor. Plan: Continue aspirin statin beta-irwin and Plavix. Continue IV fluid 100 mL/h for 5 hours Patient can proceed with cardiac diet. Check BMP CBC in the morning Full note to be dictated Coding Level of Care Code Acute Code for [facility] Fwd
--- NOTE | 2025-06-23 11:33 | P.PN_ITS ---
Subjective 2 Subjective: Status post left heart cath noted to have significant mid circumflex high-grade 90% stenosis and proximal previously placed mid in-stent restenosis both were treated with single drug-eluting stent postdilated with noncompliant balloon. Good angiographic result with ROSETTE-3 flow was noted at the end of the case in the main circumflex. Vitals/I&O/Wt Last Vital Signs Temp 97.9 F 06/23/25 07:54 Pulse 82 06/23/25 07:54 Resp 20 H 06/23/25 07:54 BP 150/91 06/23/25 08:00 Pulse Ox 97 06/23/25 07:54 O2 Del Method Room Air 06/23/25 03:44 06/22/25 06/23/25 06/23/25 22:59 06:59 14:59 Intake Total 1000 / 1000 Balance 1000 / 1000 Weight last 48 hrs Weight 174 lb 3 oz Weight 173 lb 7 oz Physical Exam 2 Const: COMMON NORMALS: alert HENMT: OTHER: GENERAL: Patient is alert, awake and oriented x3. HEART: Regular S1 and S2. No murmur, rub or gallop. LUNGS: Clear to auscultate bilaterally. CENTRAL NERVOUS SYSTEM: Grossly nonfocal. EXTREMITIES: Lower extremities with out edema bilaterally. Resp: COMMON NORMALS: clear to auscultation bilaterally AUSCULTATION: clear to auscultation bilaterally Neuro: SENSORIUM/ORIENTATION: Yes alert Data 06/21/25 06:25 06/22/25 03:51 A&P Assessment and plan 1. Acute non-ST elevation myocardial infarction (NSTEMI): 2. CAD (coronary artery disease): 3. Dyslipidemia: 4. Essential hypertension: 5. Tobacco abuse: Plan: Status post drug-eluting stent to mid circumflex with good angiographic result. Continue dual antiplatelet therapy including aspirin statin beta-irwin and Plavix. IV fluid 100 mL/h for next 5 hours Right radial band as per protocol Patient has moderate right coronary artery lesion which is not the culprit will be treated medically culprit lesion was circumflex which was treated with drug- eluting stent. Possible discharge tomorrow and follow-up with cardiology in 2 weeks. PDMP PDMP Reviewed: Not Reviewed Attestations 2 Medical Necessity Statement*: Require continuation of hospitalization for above defined Post PCI care Coding Level of Care Code Acute Code for [facility]wd Diagnoses Acute non-ST elevation myocardial infarction (NSTEMI) I21.4 CAD (coronary artery disease) I25.10 Dyslipidemia E78.5 Essential hypertension I10 Tobacco abuse Z72.0
--- NOTE | 2025-06-23 11:47 | PC.NURSE ---
received from cardiac concrete plant laborer at 1140.report received.pt is alert andm awake and oriented x 4.sr on monitor.denies pain at present.right wrist with 2 tr bands on and inflated.right hand is warm to touch and with brisk capillary refill.no hematoma noted.palpable radial pulse noted distal to tr bands.pt instructed in activity restrictions s/p radial artery procedure..and instructed to notify staff for any bleeding,pain,numbness,sob, or for any concerns at all.pt verb understanding of instructions
[2025-06-23] MEDS: dilTIAZem 100 MG in sodium chloride 0.9% (add-van) 100 ML IV (12:17)
--- NOTE | 2025-06-23 12:44 | P.PN_ITS ---
Subjective 2 Subjective: Patient had cardiac catheterization. 1 stent placed. Postprocedure patient with A-fib with RVR Vitals/I&O/Wt Last Vital Signs Temp 97.9 F 06/23/25 07:54 Pulse 82 06/23/25 07:54 Resp 20 H 06/23/25 07:54 BP 150/91 06/23/25 08:00 Pulse Ox 97 06/23/25 07:54 O2 Del Method Room Air 06/23/25 03:44 06/22/25 06/23/25 06/23/25 22:59 06:59 14:59 Intake Total 1000 / 1000 Balance 1000 / 1000 Weight last 48 hrs Weight 79.01 kg Weight 78.67 kg Physical Exam 2 Narrative: Heart irregular rate and rhythm normal tachycardic lungs clear to auscultation anteriorly abdomen soft nontender nondistended positive bowel sounds Extremities no clubbing cyanosis or edema Data 06/21/25 06:25 06/22/25 03:51 A&P Assessment and plan 1. Acute non-ST elevation myocardial infarction (NSTEMI): 2. CAD (coronary artery disease): 3. Atrial fibrillation with rapid ventricular response: 4. S/P cardiac cath: Plan: CAD found. Status post stent. Postprocedural A-fib. Discussed with Dr. Martinez. He will start Cardizem. Anticipate temporary nature of A-fib due to post procedure. Monitor overnight. PDMP PDMP Reviewed: Not Reviewed Attestations 2 Medical Necessity Statement*: Patient requires another midnight stay due to postprocedural A-fib with RVR needing rate control. Coding Level of Care Code Acute Code for [facility] Fwd Diagnoses Acute non-ST elevation myocardial infarction (NSTEMI) I21.4 CAD (coronary artery disease) I25.10 Atrial fibrillation with rapid ventricular response I48.91 S/P cardiac cath Z98.890
--- NOTE | 2025-06-23 14:40 | PC.NURSE ---
pt noted to be in atrial fibrillation on monitor at 1215.rate 120's -140's.bp stable.no c/o chest pain or sob.dr vann notified.he ordered cardizem drip which was started as ordered.
[2025-06-23] MEDS: amiodarone 150 MG/100 ML PREMIX 400 MG IV (16:48)
--- NOTE | 2025-06-23 21:54 | PC.NURSE ---
Patient converted to NSR around 2130. Dr. Martinez notified and received orders to give 400 mg amiodarone PO now and can shut the gtt off two hours after.
[2025-06-24 00:09] VITALS: BP 152/87; PULSE 69; RESP 20; TEMP 36.6; O2SAT 95
[2025-06-24 04:15] VITALS: BP 145/93; PULSE 66; TEMP 36.5; O2SAT 93
[2025-06-24 04:47] LABS: Hematocrit 42.8 % (37-53); Hemoglobin 14.60 g/dL (11.27-16.99); Mean Corpuscular HGB Conc 34.1 g/dL (30-55); Mean Corpuscular Hemoglobin 30.2 pg (27-33); Mean Corpuscular Volume 88.4 fl (82-101); Nucleated Red Blood Cells % 0 %; Platelet Count 159 10^3/cmm (157-399); Red Blood Count 4.84 10^6/uL (3.85-5.65); White Blood Count 6.72 10^3/uL (3.29-11.43)
[2025-06-24 05:11] LABS: Anion Gap 14.7 (5-19); Blood Urea Nitrogen 9 mg/dL (8-23); Calcium 9.0 mg/dL (8.5-10.5); Carbon Dioxide 26 mmol/L (22-29); Chloride 102 mmol/L (98-107); Creatinine Clr Calc Pharmacy 101.5260; Glucose 96 mg/dL (65-115); Osmolality Calculated 287 mOsm/kg (285-295); Potassium 3.7 mmol/L (3.5-5.1); Sodium 139 mmol/L (136-145)
[2025-06-24 07:44] VITALS: BP 176/97; PULSE 65; RESP 14; TEMP 36.7; O2SAT 96
--- NOTE | 2025-06-24 07:51 | P.DS_ITS ---
Discharge Providers Date of Admission: 06/23/25 11:32 Date of Discharge: June 24, 2025 Attending Provider at Admission: Bailey Velasquez MD Attending Provider at Discharge: Cristian Huggins DO Primary Care Provider: Richard Coronel DO Diagnoses at Discharge Discharge Diagnosis 1. Acute non-ST elevation myocardial infarction (NSTEMI): 2. CAD (coronary artery disease): 3. Atrial fibrillation with rapid ventricular response: 4. S/P cardiac cath: Reason for Visit Reason for Visit: Tightness in Chest Brief History: Dorian(Zafar Tabares is a 59 year old male with medical history significant for nicotine addiction, history of myocardial infarction with stent placement in 2011, presenting to the emergency room for chest pain. He took 2 nitro without relief. Patient's initial troponin was 18 and a 2-hour 44.4 with a delta of 28. Therefore he demonstrated a non-ST segment elevation NE. Dr. James was consulted Hospital Course Hospital Course Patient was admitted for an NSTEMI. He was placed on heparin given aspirin and Plavix. Cardiology felt it was best due to his history to perform a cardiac catheterization. Unfortunately our Will Call Clerk experienced a malfunction. Cardiac catheterization was delayed till 06/23/2025. He was found to have mid circumflex high-grade 90% stenosis and an in-stent restenosis. He received 1 drug-eluting stent. Subsequently the patient went into A-fib with RVR. He was started on Cardizem he converted later that night around 10 PM. He was given a one-time dose of amiodarone. This morning his heart rate is normal sinus rhythm at a rate of about 60 his other vital signs are stable. Of note his medications were adjusted for hypertension. Amlodipine/BenzePrO was discontinued and he was started on losartan 25 mg twice daily his metoprolol was also discontinued. At time of this discharge summary awaiting cardiology to review medications. Physical Exam Narrative: Heart regular rate and rhythm lungs clear to auscultation anteriorly abdomen soft nontender nondistended positive bowel sounds Extremities no clubbing cyanosis or edema Discharge Data Studies Completed and Pending Completed Studies During Hospitalization Category Date Time Status XR chest 1V portable [id number] Stat Exams 06/21/25 01:38 Completed CV. echo complete* [id number] Urgent Ultrasound 06/21/25 08:21 Completed Pending at discharge Category Date Time Status SUPER[employer]OR [employer] request for service Routine Exams 06/22/25 11:28 Ordered SUPER[employer]OR [employer] request for service Routine Exams 06/23/25 06:18 Ordered Radiology Impressions Chest X-Ray 06/21/25 01:38 IMPRESSION: No acute pulmonary process. Laboratory Results WBC 6.72 10^3/uL (3.29-11.43) 06/24/25 04:26 RBC 4.84 10^6/uL (3.85-5.65) 06/24/25 04:26 Hgb 14.60 g/dL (11.27-16.99) 06/24/25 04:26 Hct 42.8 % (37-53) 06/24/25 04:26 MCV 88.4 fl (82-101) 06/24/25 04:26 MCH 30.2 pg (27-33) 06/24/25 04:26 MCHC 34.1 g/dL (30-55) 06/24/25 04:26 RDW 13.5 % (12.1-15.1) 06/24/25 04:26 Plt Count 159 10^3/cmm (157-399) 06/24/25 04:26 MPV 10.2 fL (7.4-10.4) 06/24/25 04:26 Neut % (Auto) 59.5 % 06/24/25 04:26 Lymph % (Auto) 27.4 % 06/24/25 04:26 Stephenson % (Auto) 10.1 % 06/24/25 04:26 Eos % (Auto) 2.1 % 06/24/25 04:26 Baso % (Auto) 0.6 % 06/24/25 04:26 Neut # (Auto) 4.00 10^3/uL (1.8-7.7) 06/24/25 04:26 Lymph # (Auto) 1.8 10^3/uL (0.8-4.8) 06/24/25 04:26 Stephenson # (Auto) 0.7 10^3/uL (0.2-0.9) 06/24/25 04:26 Eos # (Auto) 0.1 10^3/uL (0.0-0.8) 06/24/25 04:26 Baso # (Auto) 0.0 10^3/uL (0.0-0.1) 06/24/25 04:26 Nucleated RBC % (auto) 0 % 06/24/25 04:26 Nucleated RBCs # 0.0 /100WBC 06/24/25 04:26 Sodium 139 mmol/L (136-145) 06/24/25 04:26 Potassium 3.7 mmol/L (3.5-5.1) 06/24/25 04:26 Chloride 102 mmol/L (98-107) 06/24/25 04:26 Carbon Dioxide 26 mmol/L (22-29) 06/24/25 04:26 Anion Gap 14.7 (5-19) 06/24/25 04:26 BUN 9 mg/dL (8-23) 06/24/25 04:26 Creatinine 0.8 mg/dL (0.7-1.2) 06/24/25 04:26 GFR Calculation 98.3 mL/min (90-130) 06/24/25 04:26 Glucose 96 mg/dL (65-115) 06/24/25 04:26 Calculated Osmolality 287 mOsm/kg (285-295) 06/24/25 04:26 Calcium 9.0 mg/dL (8.5-10.5) 06/24/25 04:26 Phosphorus 2.4 mg/dL (2.5-4.5) L 06/21/25 06:25 Magnesium 2.1 mg/dL (1.7-2.3) 06/21/25 06:25 Total Bilirubin 0.5 mg/dL (0.15-1.2) 06/22/25 03:51 AST 56 U/L (0-40) H 06/22/25 03:51 ALT 38 U/L (0-41) 06/22/25 03:51 Alkaline Phosphatase 85 U/L (40-130) 06/22/25 03:51 Troponin T 5th Gen ng/L 827 ng/L (0-15) H* 06/22/25 03:51 Troponin T Baseline 18 ng/L (0-15) H 06/21/25 01:38 Troponin T 120 Minute 46.48 ng/L (0-15) H 06/21/25 02:44 Delta Troponin T 28.48 ABS# (0-10) H* 06/21/25 02:44 Total Protein 6.8 g/dL (6.6-8.7) 06/22/25 03:51 Albumin 3.7 g/dL (3.5-5.2) 06/22/25 03:51 Globulin 3.1 g/dL (1.3-4.6) 06/22/25 03:51 Vitals Last Vital Signs Temp 98.0 F 06/24/25 07:44 Pulse 65 06/24/25 07:44 Resp 14 06/24/25 07:44 BP 176/97 06/24/25 07:44 Pulse Ox 96 06/24/25 07:44 O2 Del Method Room Air 06/24/25 00:09 Discharge Plan Discharge Patient Disposition: Home Condition: Stable Prescriptions: New losartan 50 mg Tablet 25 mg PO BID Qty: 60 0RF clopidogrel 75 mg Tablet 75 mg PO DAILY Qty: 30 0RF aspirin 81 mg Tablet,Delayed Release (Dr/Ec) 81 mg PO DAILY Qty: 30 0RF Continued (DME) Sole Supports Qty: 1 0RF Rx Instructions: As directed (DME) sole supports Qty: 1 0RF Rx Instructions: As directed (DME) sole supports See Rx Instructions .Route .MEDSUPPLY Qty: 1 0RF Rx Instructions: As directed nitroglycerin 0.4 mg tablet, sublingual See Rx Instructions .ROUTE .COMPLEX Qty: 25 2RF Dose Instruction: TAKE ONE TABLET UNDER THE TONGUE EVERY 5 MINUTES FOR MAX OF 3 FOR CHEST PAINS Rx Instructions: TAKE ONE TABLET UNDER THE TONGUE EVERY 5 MINUTES FOR MAX OF 3 FOR CHEST PAINS Discontinued aspirin [Haydee Chewable Aspirin] 81 mg tablet,chewable 81 mg PO QDAY amlodipine-benazepril 10-40 mg capsule 1 cap PO DAILY Qty: 90 3RF metoprolol tartrate 25 mg tablet 25 mg PO BID Qty: 180 3RF Advertising Material Distributor OK for DC: Cardiology and Hospitalist Referrals: Richard Coronel DO [Primary Care Provider, Family Practice] - 06/29/25 11:15 am Rosario Andrea FNP [Nurse Practitioner, Cardiology] Referral Note: We have notified your physician's clinic of the need for a follow-up appointment to be scheduled. If you have not heard from them within the next 2 business days, please call them directly. Discharge Diet: Cardiac and Low Cholesterol Discharge Activity: Increase activity as tolerated Patient Instructions: Patient Portal & Marciano Instructions Discharge Attestations Time Spent in Discharge Care*: less than 30 min Quality Metrics Clinical Quality Measures [ No reported AMI, CVA or VTE this stay] Coding Level of Care Code Acute Code for [facility] Fwd Diagnoses Acute non-ST elevation myocardial infarction (NSTEMI) I21.4 CAD (coronary artery disease) I25.10 Atrial fibrillation with rapid ventricular response I48.91 S/P cardiac cath Z98.890
[2025-06-24 08:15] VITALS: BP 176/97
--- NOTE | 2025-06-24 11:34 | P.PN_ITS ---
Subjective 2 Subjective: No overnight event feeling much better Vitals/I&O/Wt Last Vital Signs Temp 98.0 F 06/24/25 07:44 Pulse 65 06/24/25 07:44 Resp 14 06/24/25 07:44 BP 176/97 06/24/25 08:15 Pulse Ox 96 06/24/25 07:44 O2 Del Method Room Air 06/24/25 00:09 06/23/25 06/24/25 06/24/25 22:59 06:59 14:59 Intake Total 1519.459 / 1778.042 200 / 1978.042 480 / 480 Output Total 200 / 200 Balance 1319.459 / 1578.042 200 / 1778.042 480 / 480 Weight last 48 hrs Weight 174 lb Weight 174 lb 3 oz Physical Exam 2 Const: COMMON NORMALS: alert HENMT: OTHER: GENERAL: Patient is alert, awake and oriented x3. HEART: Regular S1 and S2. No murmur, rub or gallop. LUNGS: Clear to auscultate bilaterally. CENTRAL NERVOUS SYSTEM: Grossly nonfocal. EXTREMITIES: Lower extremities with out edema bilaterally. Resp: COMMON NORMALS: clear to auscultation bilaterally AUSCULTATION: clear to auscultation bilaterally Neuro: SENSORIUM/ORIENTATION: Yes alert Data 06/24/25 04:26 06/24/25 04:26 A&P Assessment and plan 1. Acute non-ST elevation myocardial infarction (NSTEMI): 2. CAD (coronary artery disease): 3. Dyslipidemia: 4. Essential hypertension: 5. Tobacco abuse: 6. Atrial fibrillation with rapid ventricular response: Plan: Post PCI patient had episode of A-fib with RVR, he was converted back to sinus rhythm. Patient denies any prior history of A-fib. Since it is post PCI on the one-time we recommend continuing back him on metoprolol Outpatient event monitor For PCI continue dual antiplatelet therapy in the form of aspirin and Plavix. Will resume patient home medications but replace amlodipine benazepril with losartan which was started in the hospital Resume back home metoprolol Follow-up with cardiology in 2 weeks PDMP PDMP Reviewed: Not Reviewed Attestations 2 Medical Necessity Statement*: From cardiovascular perspective patient can be discharged home Coding Level of Care Code Acute Code for [facility] Diagnoses Acute non-ST elevation myocardial infarction (NSTEMI) I21.4 CAD (coronary artery disease) I25.10 Dyslipidemia E78.5 Essential hypertension I10 Tobacco abuse Z72.0 Atrial fibrillation with rapid ventricular response I48.91
[2025-06-24 12:00] VITALS: BP 144/92; PULSE 69; RESP 20; TEMP 36.7
[2025-06-24 12:25] VITALS: BP 144/92; PULSE 69; RESP 20; TEMP 36.7; O2SAT 94
== END 2025-06-24 12:27 | disposition home or self-care (01) | DRG 321 ==
LOC: ER 04:10 → ER IP 04:26 → CSU 10:03
PROVIDERS: Internal Medicine Cardiovascular Disease; Nurse Practitioner Family; Admitting Provider Internal Medicine; Emergency Provider Student in an Organized Health Care Education/Training Program; PCP Family Medicine; Visit Provider Internal Medicine
PROC: 027034Z Dilation of Coronary Artery, One Artery with Drug-eluting Intraluminal Device, Percutaneous Approach (ICD-10-PCS; principal; 2025-06-23 10:30)
PROC: 027034Z Dilation of Coronary Artery, One Artery with Drug-eluting Intraluminal Device, Percutaneous Approach (ICD-10-PCS; 2025-06-23 10:30)
DX: T82.855A Stenosis of coronary artery stent, initial encounter (principal); I21.4 Non-ST elevation (NSTEMI) myocardial infarction; Y71.8 Miscellaneous cardiovascular devices associated with adverse incidents, not elsewhere classified; I25.10 Atherosclerotic heart disease of native coronary artery without angina pectoris; E78.5 Hyperlipidemia, unspecified; I10 Essential (primary) hypertension; F17.210 Nicotine dependence, cigarettes, uncomplicated; I48.91 Unspecified atrial fibrillation; I25.2 Old myocardial infarction; R73.02 Impaired glucose tolerance (oral); Z95.5 Presence of coronary angioplasty implant and graft
CPT/HCPCS: 36415; 71045; 80048; 80053; 83735; 84100; 84484; 85025; 85347; 93005; 93306; 93454; 96361; 96372; 96374; 99152; 99153; 99291; 99292; C1725; C1769; C1874; C1887; C1894; C9600; G0378; J0283; J0461; J1644; J1650; J2250; J2270; J3010; J3490; J7030; J9999; Q9967

== ENCOUNTER 2025-07-11 11:16 | Observation (INO) | payer OTHER, SELFPAY ==
[2025-07-11] VITALS (9 sets, daily range): BP systolic 143–167; BP diastolic 82–111; PULSE 66–76; RESP 16–20; TEMP 36.4–36.5; O2SAT 95–98
--- NOTE | 2025-07-11 13:44 | XR_ITS ---
WS: [id number] XR chest 1V portable [id number] REASON FOR EXAM: dyspnea/cough FINDINGS: Chest is unchanged compared to 06/21/2025. Mild tortuosity of the thoracic aorta. Normal heart size. Coronary artery stents. Calcified granulomatous disease bilaterally. No acute pulmonary parenchymal or pleural abnormality identified. Mild degenerative spondylosis of the thoracic spine. XR/XR chest 1V portable [id number] IMPRESSION: Stable chest with no acute abnormality.
--- NOTE | 2025-07-11 13:49 | ECG_ITS ---
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 Measurements Intervals [place] Rate: 71 P: 57 WA: 149 QRS: -34 QRSD: 109 T: -3 QT: 378 QTc: 411 Interpretive Statements SINUS RHYTHM LEFT AXIS DEVIATION [QRS AXIS < -30] INCOMPLETE RIGHT BUNDLE BRANCH BLOCK [90+ ms QRS DURATION, TERMINAL R IN V1/V2, 40+ ms S IN I/aVL/V4/V5/V6] Electronically Signed On 07-11-2025 13:51:17 CDT by Harmeet Vazquez M.D. [email or web address]
[2025-07-11 14:03] LABS: Hematocrit 43.2 % (37-53); Hemoglobin 14.40 g/dL (11.27-16.99); Mean Corpuscular HGB Conc 33.3 g/dL (30-55); Mean Corpuscular Hemoglobin 29.7 pg (27-33); Mean Corpuscular Volume 89.1 fl (82-101); Nucleated Red Blood Cells % 0 %; Platelet Count 200 10^3/cmm (157-399); Red Blood Count 4.85 10^6/uL (3.85-5.65); White Blood Count 8.81 10^3/uL (3.29-11.43)
--- NOTE | 2025-07-11 14:04 | ED_ITS ---
HPI - Abdominal Pain 2 General: Chief Complaint: Abdominal Pain Stated Complaint: ABD Pain into Lower Back Time Seen by Provider: 07/11/25 13:31 History of Present Illness: 59-year-old male presents emergency room complaining of epigastric abdominal pain radiating around to his back he had some last night had some days prior as well he has noticed anything that exacerbates or relieves it. He recently had an angiogram with stents. Is currently on aspirin and Plavix. He has a history of atrial fibrillation in the past as well as coronary artery disease. On June 23 patient had a heart catheterization with a mid circumflex lesion that was treated with stent. he also had a right coronary artery with a proximal significant 80% stenosis. Since he left he said episodes of epigastric discomfort radiating around his back that have been increasing in intensity that are not associated with any activity. No hemoptysis no hematemesis no coffee- ground emesis. No dysuria urgency or frequency. No significant abdominal pain. Associated Symptoms: Denies chills, dysuria and fever(s) Related Data Previous Rx's ?Medication ?Instructions ?Recorded Sole Supports #1 ea 11/20/19 sole supports #1 ea 02/26/20 sole supports #1 ea 03/14/20 nitroglycerin 0.4 mg sublingual See Rx Instructions .R oute 11/24/23 tablet .COMPLEX #25 tabs aspirin 81 mg tablet,delayed 81 mg PO DAILY #30 tabs 0 06/24/25 release atorvastatin 80 mg tablet (Lipitor) 80 mg PO BEDTIME # 30 tabs 06/24/25 clopidogrel 75 mg tablet 75 mg PO DAILY #30 tabs 05/27 11/18 losartan 50 mg tablet 25 mg (1/2 x 50 mg) PO BID # 60 tabs 06/24/25 Allergies Allergy/AdvReac Type Severity Reaction Status Date / Time No Known Allergies Allergy Verified 07/11/25 11:24 Review of Systems 2 Const: Denies: fever(s) or chills Card: Denies: chest pain Resp: Denies: dyspnea GI: Denies: abdominal pain : Denies: dysuria, urinary frequency or urinary urgency Musc: Denies: neck pain or back pain Skin/Breast: Denies: rash PFSH ED 2 PFSH: Medical History Atrial fibrillation with rapid ventricular response CAD (coronary artery disease) Acute non-ST elevation myocardial infarction (NSTEMI) Non-ST elevation [place] (NSTEMI) Glucose intolerance (impaired glucose tolerance) Presence of stent in left circumflex coronary artery Dyslipidemia Essential hypertension Surgical History S/P cardiac cath Hx of coronary angioplasty Social History Smoking and tobacco/nicotine status: current every day tobacco/nicotine user Alcohol intake: never Substance/Drug Use: never Marital status: Current occupational status: employed Physical Exam 2 Const: COMMON NORMALS: no acute distress GENERAL APPEARANCE: cooperative and comfortable ORIENTATION/CONSCIOUSNESS: Yes awake, Yes oriented to person, Yes oriented to place and Yes oriented to time HENMT: COMMON NORMALS: normocephalic, atraumatic and hearing grossly normal bilaterally HEAD & SCALP: normocephalic and atraumatic Resp: COMMON NORMALS: normal respiratory effort, No retractions, No use of accessory muscles and clear to auscultation bilaterally AUSCULTATION: clear to auscultation bilaterally Cardio: COMMON NORMALS: regular rate, regular rhythm and No murmurs present (Cardio) RATE: regular rate RHYTHM: regular rhythm GI: COMMON NORMALS: Soft to palpation and No hepatosplenomegaly present A USCULTATION: Yes normoactive bowel sounds PALPATION: Yes Soft to palpation, No Tenderness to palpation present (GI), No Guarding due to palpation present (GI) and Yes No hepatosplenomegaly present Extremity: COMMON NORMALS: normal to inspection, capillary refill normal, no clubbing, cyanosis or edema, no calf tenderness and no pedal edema Neuro: SENSORIUM/ORIENTATION: Yes oriented to person, Yes oriented to place and Yes oriented to time Skin: COMMON NORMALS: no rashes or lesions noted GENERAL SKIN EXAM: no rashes or lesions noted Course 2 Vital Signs: Vital signs: Vital Signs Temperature 97.6 F 07/11/25 11:19 Pulse Rate 71 07/11/25 14:33 Respiratory Rate 16 07/11/25 14:33 Blood Pressure 157/96 07/11/25 14:33 Pulse Oximetry 97 07/11/25 14:33 Oxygen Delivery Me thod Room Air 07/11/25 14:33 MDM - Abdominal Pain Medical Decision Making Patient not having any pain at this time I reviewed 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 Called and discussed with Dr. Love concerned that these are anginal equivalents that he has been having that been escalating to the point that he is comes in today. He does not have any pain at this time. Dr. Mathews recommends that he be placed on observation and have stress testing and [facility] cardiology consult. Discussed Dr. Coles orders written Medical Records I reviewed the patient's medical records. Lab Data I reviewed the patient's lab results. 07/11/25 13:57 07/11/25 13:57 Labs/Radiology: Radiology Impressions Chest X-Ray 07/11/25 13:44 IMPRESSION: Stable chest with no acute abnormality. Laboratory Results WBC 8.81 10^3/uL (3.29-11.43) 07/11/25 13:57 RBC 4.85 10^6/uL (3.85-5.65) 07/11/25 13:57 Hgb 14.40 g/dL (11.27-16.99) 07/11/25 13:57 Hct 43.2 % (37-53) 07/11/25 13:57 MCV 89.1 fl (82-101) 07/11/25 13:57 MCH 29.7 pg (27-33) 07/11/25 13:57 MCHC 33.3 g/dL (30-55) 07/11/25 13:57 RDW 13.2 % (12.1-15.1) 07/11/25 13:57 Plt Count 200 10^3/cmm (157-399) 07/11/25 13:57 MPV 9.6 fL (7.4-10.4) 07/11/25 13:57 Neut % (Auto) 61.6 % 07/11/25 13:57 Lymph % (Auto) 27.0 % 07/11/25 13:57 [place] % (Auto) 8.2 % 07/11/25 13:57 Eos % (Auto) 2.5 % 07/11/25 13:57 Baso % (Auto) 0.5 % 07/11/25 13:57 Neut # (Auto) 5.43 10^3/uL (1.8-7.7) 07/11/25 13:57 Lymph # (Auto) 2.4 10^3/uL (0.8-4.8) 07/11/25 13:57 [place] # (Auto) 0.7 10^3/uL (0.2-0.9) 07/11/25 13:57 Eos # (Auto) 0.2 10^3/uL (0.0-0.8) 07/11/25 13:57 Baso # (Auto) 0.0 10^3/uL (0.0-0.1) 07/11/25 13:57 Nucleated RBC % (auto) 0 % 07/11/25 13:57 Nucleated RBCs # 0.0 /100WBC 07/11/25 13:57 Sodium 137 mmol/L (136-145) 07/11/25 13:57 Potassium 4.3 mmol/L (3.5-5.1) 07/11/25 13:57 Chloride 98 mmol/L (98-107) 07/11/25 13:57 Carbon Dioxide 29 mmol/L (22-29) 07/11/25 13:57 Anion Gap 14.3 (5-19) 07/11/25 13:57 BUN 11 mg/dL (8-23) 07/11/25 13:57 Creatinine 0.8 mg/dL (0.7-1.2) 07/11/25 13:57 GFR Calculation 98.3 mL/min (90-130) 07/11/25 13:57 Glucose 75 mg/dL (65-115) 07/11/25 13:57 Calculated Osmolality 282 mOsm/kg (285-295) L 07/11/25 13:57 Calcium 9.6 mg/dL (8.5-10.5) 07/11/25 13:57 Total Bilirubin 0.5 mg/dL (0.15-1.2) 07/11/25 13:57 AST 18 U/L (0-40) 07/11/25 13:57 ALT 13 U/L (0-41) 07/11/25 13:57 Alkaline Phosphatase 92 U/L (40-130) 07/11/25 13:57 Troponin T Baseline 12 ng/L (0-15) 07/11/25 13:57 Total Protein 7.6 g/dL (6.6-8.7) 07/11/25 13:57 Albumin 4.1 g/dL (3.5-5.2) 07/11/25 13:57 Globulin 3.5 g/dL (1.3-4.6) 07/11/25 13:57 Lipase 28 U/L (13-60) 07/11/25 13:57 Urine Color Yellow (Yellow) 07/11/25 14:33 Urine Appearance Clear (CLEAR) 07/11/25 14:33 Urine pH 6.0 (5-7) 07/11/25 14:33 Ur Specific [place] 1.010 (1.005-1.030) 07/11/25 14:33 Urine Protein Negative (Negative) 07/11/25 14:33 Urine Glucose (UA) Negative (Normal) 07/11/25 14:33 Urine Ketones Negative (Negative) 07/11/25 14:33 Urine Blood Trace (Negative) A 07/11/25 14:33 Urine Nitrate Negative (Negative) 07/11/25 14:33 Urine Bilirubin Negative (Negative) 07/11/25 14:33 Urine Urobilinogen 1.0 mg/dL (Negative) 07/11/25 14:33 Ur Leukocyte Esterase Negative (Negative) 07/11/25 14:33 Urine RBC 0-2 /hpf (0-2) 07/11/25 14:33 Urine WBC 0-5 /hpf (0-5) 07/11/25 14:33 Ur Squamous Epith Cells 0-5 /hpf (0-5) 07/11/25 14:33 Amorphous Sediment Not Reportable 07/11/25 14:33 Urine Bacteria None seen /hpf (NONE) 07/11/25 14:33 Hyaline Casts 0-4 /lpf H 07/11/25 14:33 All radiology interpretation(s) finalized by discharge EKG Data EKG 1: Interpretation: 07/11/2025 1349 sinus rhythm with a rate of 71 parable 149 QTc 411. Patient has an incomplete bundle branch block. No acute ST changes. No significant change from EKG done on 06/21/2025. Discharge Plan Discharge Patient Disposition: Placed in Observation Clinical Impression: Unstable angina, Presence of stent in left circumflex coronary artery, CAD (coronary artery disease) Coding Level of Care Code ED Eap Consultant for Giovani Loza
[2025-07-11 14:29] LABS: Alanine Aminotransferase 13 U/L (0-41); Albumin Level 4.1 g/dL (3.5-5.2); Alkaline Phosphatase 92 U/L (40-130); Anion Gap 14.3 (5-19); Aspartate Amino Transferase 18 U/L (0-40); Blood Urea Nitrogen 11 mg/dL (8-23); Calcium 9.6 mg/dL (8.5-10.5); Carbon Dioxide 29 mmol/L (22-29); Chloride 98 mmol/L (98-107); Creatinine Clr Calc Pharmacy 102.2260; Globulin 3.5 g/dL (1.3-4.6); Glucose 75 mg/dL (65-115); Lipase 28 U/L (13-60); Osmolality Calculated 282 mOsm/kg (285-295); Potassium 4.3 mmol/L (3.5-5.1); Sodium 137 mmol/L (136-145); Total Protein 7.6 g/dL (6.6-8.7)
[2025-07-11 14:46] LABS: Troponin(5th) Baseline 12 ng/L (0-15)
[2025-07-11 14:54] LABS: Glucose Urine UA Negative (Normal); Nitrate Urine Negative (Negative); Specific Gravity, Urine 1.010 (1.005-1.030)
[2025-07-11 15:00] LABS: Add Urine Microscopic? YES
--- NOTE | 2025-07-11 15:45 | P.CONIM_ITS ---
<Statement entered by Bhargav Mathews M.D - 07/14/25 10:19> Patient was cared for in conjunction with an advanced practice practitioner.? I reviewed the chart and all pertinent data including imaging, telemetry, and laboratory results.? I discussed the patient in detail with the advanced practice practitioner.? Please see?their note for consult note, testing results and agreed upon plan of care for the patient. Presentation is consistent with unstable angina. Significant ischemic changes untreated lipids. Had residual stenosis in RCA on prior cath. Plan for coronary angiogram. Providers/Reason For Consult 2 Consulting Physician/Specialty*: Dr Mathews, interventional cardiology Reason for Consult*: epigastric pain, recent PCI, ischemic EKG changes Requesting Physician: Dr Jose Primary Care Provider: Yesica Parks NP History of Present Illness History of Present Illness Dorian Tabares is a 59 year old male with past medical history of CAD, previous NSTEMI 2011 and May 2025, PCI to the left circumflex in 2011, PCI to the mid hughes and in-stent restenosis of the circumflex 06/23/2025. At that time RCA noted to be tortuous, contained moderate stenosis. He had a short period of atrial fibrillation surrounding the PCI but converted to sinus rhythm shortly thereafter. He has been taking aspirin, Plavix, statin and beta-irwin regularly. Since he was discharged home he has noticed some intermittent epigastric discomfort that wraps in a band starting from the front of the chest to the back, occurring only at night. He notes a sensation like a gas bubble and needing to belch, then he vomits. He has not had any shortness of breath, substernal chest pain, orthopnea, lower extremity edema. Echocardiogram during the last admission revealed LVEF 67%, mild concentric LVH, no significant valvular abnormality. He has had some inferior ischemic changes on his EKG, leads II, III and aVF show ST depression, with some reciprocal change in V2. Baseline troponin 12. Laboratory testing otherwise unremarkable. He is pain- free now. Review of Systems 2 Const: Denies: fever(s), chills, change in weight, fatigue or diaphoresis Eyes: Denies: change in vision ENMT: Denies: epistaxis Card: Reports: chest pain (epigastric and back); Denies: palpitations, irregular heart rhythm, edema, syncope, pre-syncope, dyspnea on exertion, orthopnea or leg pain with exertion Resp: Denies: dyspnea, productive cough or wheezing GI: Reports: nausea, vomiting and belching; Denies: hematemesis, hematochezia or melena : Denies: hematuria Musc: Denies: extremity swelling Sanjay/Lymph: Denies: easy bruising or easy bleeding Medications/Allergies Home Medications ?Medication ?Instructions ?Recorded ?Confirmed ?Last Taken ?Type Sole Supports #1 ea 11/20/19 07/11/25 Unkn own Rx sole supports #1 ea 02/26/20 07/11/25 Unkn own Rx sole supports #1 ea 03/14/20 07/11/25 Unkn own Rx nitroglycerin 0.4 mg sublingual See Rx Instructions .R oute 11/24/23 07/11/25 Unknown Rx tablet .COMPLEX #25 tabs aspirin 81 mg tablet,delayed 81 mg PO DAILY #30 tabs 0 06/24/25 07/11/25 07/11/25 Rx release atorvastatin 80 mg tablet (Lipitor) 80 mg PO BEDTIME # 30 tabs 06/24/25 07/11/25 07/10/25 Rx clopidogrel 75 mg tablet 75 mg PO DAILY #30 tabs 05/2707/11/25 07/11/25 Rx losartan 50 mg tablet 25 mg (1/2 x 50 mg) PO BID # 60 tabs 06/24/25 07/11/25 07/11/25 Rx metoprolol tartrate 25 mg tablet 25 mg PO BID 07/11/25 07/11/25 07/11/25 History Allergies Allergy/AdvReac Type Severity Reaction Status Date / Time No Known Allergies Allergy Verified 07/11/25 11:24 PFSH Acute 2 PFSH: Medical History Atrial fibrillation with rapid ventricular response CAD (coronary artery disease) Acute non-ST elevation myocardial infarction (NSTEMI) Non-ST elevation [place] (NSTEMI) Glucose intolerance (impaired glucose tolerance) Presence of stent in left circumflex coronary artery Dyslipidemia Essential hypertension Surgical History S/P cardiac cath Hx of coronary angioplasty Social History Smoking and tobacco/nicotine status: current every day tobacco/nicotine user Alcohol intake: never Substance/Drug Use: never Marital status: Current occupational status: employed Vitals/I&O/Wt Last Vital Signs Temp 97.6 F 07/11/25 11:19 Pulse 67 07/11/25 15:31 Resp 16 07/11/25 15:31 BP 167/111 07/11/25 15:31 Pulse Ox 97 07/11/25 15:31 O2 Del Method Room Air 07/11/25 14:33 Weight last 48 hrs Weight 177 lb Physical Exam 2 Const: COMMON NORMALS: no acute distress and patient oriented x3 GENERAL APPEARANCE: cooperative and comfortable ORIENTATION/CONSCIOUSNESS: Yes awake, Yes oriented to person, Yes oriented to place and Yes oriented to time Chest: COMMONS NORMALS: normal inspection of the chest and normal palpation of entire chest wall CHEST: Yes Symmetrical chest wall rise Resp: COMMON NORMALS: normal respiratory effort, No retractions, No use of accessory muscles and clear to auscultation bilaterally EFFORT & INSPECTION: Yes symmetric chest movement AUSCULTATION: clear to auscultation bilaterally Cardio: COMMON NORMALS: regular rate, regular rhythm, S1 normal heart sound present, S2 normal heart sound present, No gallops present (Cardio), No clicks present (Cardio), No murmurs present (Cardio) and No rub (Cardio) RATE: r egular rate RHYTHM: regular rhythm HEART SOUNDS: S1 normal heart sound present and S2 normal heart sound present PERIPHERAL PULSES: radial pulses present Extremity: COMMON NORMALS: no pedal edema Neuro: COMMON NORMALS: patient oriented x3 and moves all extremities S ENSORIUM/ORIENTATION: Yes oriented to person, Yes oriented to place and Yes oriented to time Data 07/11/25 13:57 07/11/25 13:57 A&P Assessment and plan 1. CAD (coronary artery disease): 2. Unstable angina: 3. Nicotine addiction: 4. Dyslipidemia: 5. Essential hypertension: Plan: Given the inferior EKG ischemic changes in the second EKG becoming more pronounced, combined with symptoms that could be anginal equivalent, will plan for coronary angiogram tomorrow morning 7 AM. N.p.o. after midnight. Continue to trend troponin. Will heparinize. PDMP PDMP Reviewed: Not Reviewed Coding Level of Care Code Acute Code for g Fwd Diagnoses CAD (coronary artery disease) I25.10 Unstable angina I20.0 Nicotine addiction F17.200 Dyslipidemia E78.5 Essential hypertension I10
--- NOTE | 2025-07-11 15:48 | PC.PHAR ---
Pt has been taken off of Amlodipine/Benazepril 10-40. Spouse states pt has been taking Losartan 50mg (whole tablet) bid for 2 weeks and did not realize Losartan 50mg directions were 1/2 tablet bid. Pt has taken 1/2 tablet bid for 3 days.
--- NOTE | 2025-07-11 15:50 | ECG_ITS ---
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 Measurements Intervals [place] Rate: 68 P: 67 WV: 170 QRS: -33 QRSD: 105 T: -7 QT: 389 QTc: 417 Interpretive Statements SINUS RHYTHM LEFT AXIS DEVIATION [QRS AXIS < -30] INCOMPLETE RIGHT BUNDLE BRANCH BLOCK [90+ ms QRS DURATION, TERMINAL R IN V1/V2, 40+ ms S IN I/aVL/V4/V5/V6] MINIMAL ST DEPRESSION [0.025+ mV ST DEPRESSION] Compared to ECG 07/11/2025 13:49:57 ST (T wave) deviation now present Electronically Signed On 07-11-2025 23:40:12 CDT by Harmeet Vazquez M.D. [id number]
[2025-07-11] MEDS: heparin 5,000 unit/mL INJ 1 mL IVP (16:34)
[2025-07-11 16:46] LABS: Troponin 5 2HR 13.74 ng/L (0-15); Troponin 5 2HR Delta 1.74 ABS# (0-10)
[2025-07-11] MEDS: heparin drip 25,000 UNIT/500 ML PREMIX 22 UNIT IV (16:49)
--- NOTE | 2025-07-11 16:58 | P.HP_ITS ---
Providers/Chief Complaint 2 Primary Care Provider: Yesica Parks NP Chief Complaint: ABD Pain into Lower Back History of Present Illness As per the previous notes and the patient: Dorian Tabares is a 59 year old male with past medical history of CAD, previous NSTEMI 2011 and May 2025, PCI to the left circumflex in 2011, PCI to the mid viejas and in-stent restenosis of the circumflex 06/23/2025. At that time RCA noted to be tortuous, contained moderate stenosis. He had a short period of atrial fibrillation surrounding the PCI but converted to sinus rhythm shortly thereafter. He has been taking aspirin, Plavix, statin and beta-irwin regularly. When he was discharged he was pain-free until few days ago when he has noticed some intermittent epigastric discomfort that wraps in a band starting from the front of the chest to the back, occurring only at night. He notes a sensation like a gas bubble and needing to belch, then he vomits. The patient did not report any recent lower leg swellings, orthopnea or PND Echocardiogram during the last admission revealed LVEF 67%, mild concentric LVH, no significant valvular abnormality. He has had some inferior ischemic changes on his EKG, leads II, III and aVF show ST depression, with some reciprocal change in V2. Baseline troponin 12. Laboratory testing otherwise unremarkable. Patient seen by the cardiology and for plan of angiography tomorrow Currently the patient is asymptomatic and pain-free. The patient is a current active smoker however he has reduced to less than a pack which was initially 2 packs/day No other drug abuse history Review of Systems 2 General: Reports: 10 or more systems reviewed and unremarkable except in HPI and below Medications/Allergies Home Medications ?Medication ?Instructions ?Recorded ?Confirmed ?Last Taken ?Type Sole Supports #1 ea 11/20/19 07/11/25 Unkn own Rx sole supports #1 ea 02/26/20 07/11/25 Unkn own Rx sole supports #1 ea 03/14/20 07/11/25 Unkn own Rx nitroglycerin 0.4 mg sublingual See Rx Instructions .R oute 11/24/23 07/11/25 Unknown Rx tablet .COMPLEX #25 tabs aspirin 81 mg tablet,delayed 81 mg PO DAILY #30 tabs 0 06/24/25 07/11/25 07/11/25 Rx release atorvastatin 80 mg tablet (Lipitor) 80 mg PO BEDTIME # 30 tabs 06/24/25 07/11/25 07/10/25 Rx clopidogrel 75 mg tablet 75 mg PO DAILY #30 tabs 05/2707/11/25 07/11/25 Rx losartan 50 mg tablet 25 mg (1/2 x 50 mg) PO BID # 60 tabs 06/24/25 07/11/25 07/11/25 Rx metoprolol tartrate 25 mg tablet 25 mg PO BID 07/11/25 07/11/25 07/11/25 History Allergies Allergy/AdvReac Type Severity Reaction Status Date / Time No Known Allergies Allergy Verified 07/11/25 11:24 PFSH Acute 2 PFSH: Medical History Atrial fibrillation with rapid ventricular response CAD (coronary artery disease) Acute non-ST elevation myocardial infarction (NSTEMI) Non-ST elevation [place] (NSTEMI) Glucose intolerance (impaired glucose tolerance) Presence of stent in left circumflex coronary artery Dyslipidemia Essential hypertension Surgical History S/P cardiac cath Hx of coronary angioplasty Social History Smoking and tobacco/nicotine status: current every day tobacco/nicotine user Alcohol intake: never Substance/Drug Use: never Marital status: Current occupational status: employed Vitals/I&O/Wt Last Vital Signs Temp 97.6 F 07/11/25 11:19 Pulse 66 07/11/25 16:06 Resp 16 07/11/25 16:06 BP 167/111 07/11/25 15:31 Pulse Ox 96 07/11/25 16:06 O2 Del Method Room Air 07/11/25 16:06 Weight last 48 hrs Weight 80.286 kg Physical Exam 2 Narrative: General: Alert and oriented, lying comfortably without any distress HEENT: Normocephalic, atraumatic, grossly unremarkable exam Cardio: normal rate rhythm, normal S1-S2 without any murmurs, rubs, or gallops and JVD normal Respiratory: normal vascular breathing on auscultation without any wheezes, stridor, rhonchi GI: Abdomen soft, nontender, nondistended, normoactive bowel sounds present all 4 quadrants, Neuro: intact cranial nerves motor and sensory and cerebellar/coordination function without any focal neurological deficit Behavior: Appropriate and cooperative Extremities: Adequate palpable pulses, no edema or cyanosis observed Skin: grossly unremarkable exam Data 07/11/25 13:57 07/11/25 13:57 A&P Assessment and plan 1. Unstable angina: 2. CAD (coronary artery disease): 3. Nicotine addiction: 4. Dyslipidemia: Plan: - Cardiology on board continue on heparin infusion - Continue statins, continue on aspirin and clopidogrel - EKG showing concerning findings for cath tomorrow - metoprolol 25mg bid - Losartan 25 mg daily for the meantime ( on BID dose at home ) - Emphasis on smoking cessation has been provided - Telemetry monitoring - Trop and EKG trend - Monitor vitals - N.p.o. except further medications VTE: Heparin infusion full pharmacological dose Diet: Cardiac/n.p.o. after midnight PDMP PDMP Reviewed: Not Reviewed Attestations 2 Medical Necessity Statement*: Dorian Tabares's hospital stay will be less than 2 midnights for management of ACS likely unstable angina Time Spent in Patient Care: 16 - 35 minutes (>than 50% of time sp ent in counselling and/or direct pt care on unit) . Other Attestations: Patient condition has been discussed at length with the patient/family, I have independently reviewed the chart labs imaging/diagnostics/EKG. the goals of care and code status with the patient/family/NOK/legal traveling representative, and documented accordingly. The patient/family has been informed about the current condition and further plan of care. Agreed with the plan of care and understood without any language barrier. Every effort was made to ensure accuracy of indirect sales representative. Any obvious errors or omissions should be clarified with the author of the document. Coding Level of Care Code 14343 Diagnoses Unstable angina I20.0 CAD (coronary artery disease) I25.10 Nicotine addiction F17.200 Dyslipidemia E78.5
--- NOTE | 2025-07-11 17:22 | PC.NURSE ---
Patient transferred from ED to CSU at 1722 with a heparin drip.
[2025-07-11 17:45] LABS: Magnesium 2.1 mg/dL (1.7-2.3)
[2025-07-11 20:05] LABS: Troponin 5 6HR 12.36 ng/L (0-15); Troponin 5 6HR Delta 0.36 ng/L (0-12)
--- NOTE | 2025-07-11 20:13 | ECG_ITS ---
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 Measurements Intervals [place] Rate: 75 P: 63 IN: 154 QRS: -49 QRSD: 109 T: 13 QT: 382 QTc: 428 Interpretive Statements SINUS RHYTHM INCOMPLETE RIGHT BUNDLE BRANCH BLOCK [90+ ms QRS DURATION, TERMINAL R IN V1/V2, 40+ ms S IN I/aVL/V4/V5/V6] LEFT ANTERIOR FASCICULAR BLOCK [QRS AXIS <= -45, QR IN I, RS IN II] MINIMAL ST DEPRESSION [0.025+ mV ST DEPRESSION] Compared to ECG 07/11/2025 15:50:31 Left anterior fascicular block now present Left-axis deviation no longer present ST (T wave) deviation still present Electronically Signed On 07-11-2025 23:29:40 CDT by Harmeet Vazquez M.D. [id number]
[2025-07-11 23:14] LABS: Partial Thromboplastin Time 94.7 SECONDS (23.9-36.7)
[2025-07-12] VITALS (17 sets, daily range): BP systolic 126–180; BP diastolic 76–111; PULSE 64–89; RESP 16–22; TEMP 36.5–37.3; O2SAT 92–98
--- NOTE | 2025-07-12 03:45 | PC.NURSE ---
Patient was concerned that he had not taken his second dose of BP medication from home. Dr Mendosa put in note that he would like to hold off on losartan bid and do only daily for now. Metoprolol 25mg was ordered for BID but did not start until 07/[address] Lagos was notified and one time dose was placed per Dr Lagos. Patient BP was still elevated so Dr Lagos was notified once again and gave orders to put in losartan 25mg BID.
[2025-07-12 05:33] LABS: Hematocrit 42.9 % (37-53); Hemoglobin 14.30 g/dL (11.27-16.99); Mean Corpuscular HGB Conc 33.3 g/dL (30-55); Mean Corpuscular Hemoglobin 29.4 pg (27-33); Mean Corpuscular Volume 88.3 fl (82-101); Nucleated Red Blood Cells % 0 %; Platelet Count 191 10^3/cmm (157-399); Red Blood Count 4.86 10^6/uL (3.85-5.65); White Blood Count 6.86 10^3/uL (3.29-11.43)
[2025-07-12 05:49] LABS: Alanine Aminotransferase 15 U/L (0-41); Albumin Level 3.9 g/dL (3.5-5.2); Alkaline Phosphatase 93 U/L (40-130); Anion Gap 16.3 (5-19); Aspartate Amino Transferase 19 U/L (0-40); Blood Urea Nitrogen 9 mg/dL (8-23); Calcium 9.0 mg/dL (8.5-10.5); Carbon Dioxide 26 mmol/L (22-29); Chloride 102 mmol/L (98-107); Creatinine Clr Calc Pharmacy 102.9227; Globulin 3.4 g/dL (1.3-4.6); Glucose 95 mg/dL (65-115); Osmolality Calculated 288 mOsm/kg (285-295); Potassium 4.3 mmol/L (3.5-5.1); Sodium 140 mmol/L (136-145); Total Protein 7.3 g/dL (6.6-8.7)
[2025-07-12 06:05] LABS: Partial Thromboplastin Time 82.4 SECONDS (23.9-36.7)
--- NOTE | 2025-07-12 08:00 | XACV_ITS ---
Exam Room: 2 Ht: 175 cm Wt: 81 kg BSA: 2.00 m2 Gender: Male : 1965 Any Known Allergies: No known allergies Exam Priority: Routine Procedure(s): Procedure Description: Diagnostic procedure Procedure Description: PCI procedure Procedure Description: Drug Eluting Coronary Stent Procedure Description: PTCA Procedure Description: Miscellaneous Procedure Description: ACT Procedure Description: Coronary Angiography Diagnostic Cath Status: Urgent Diagnostic Findings * Left Main has no significant disease. * Left Anterior Descending has mild luminal irregularities. * Circumflex has patent prior stent. * Mid Right Coronary Artery: significant 80% stenosis, ROSETTE: 3 flow. * Coronary angiography shows right dominance. PCI Status: Urgent Interventional Findings * Procedure detail: We predilated mid RCA stenosis with 2.5 x 12 mm semicompliant balloon. This was followed by placement of 2.5 x 15 mm resolute Melani drug-eluting stent. At this time final angiogram was performed that showed excellent stent expansion and no residual stenosis. Guidewire and guide catheter were removed. Patient left the [employer] in a stable condition.. * Mid Right Coronary Artery: 80% stenosis treated with a AB TREK 2.50X12 RX BALLOON, and BETH Sullivan MELANI 2.5X15 PATY. 0% residual stenosis, ROSETTE: 3 flow. Conclusions 1. Severe mid RCA stenosis s/p PCI with 1 stent. 2. Mid Right Coronary Artery was treated with a Balloon, and Drug Eluting Stent. Recommendations * Dual antiplatelet therapy with aspirin and plavix. * High intensity statin therapy. * Outpatient cardiology follow up in 2 weeks. Pressures Phase:Rest AO : 145 / 102 ( 124 ) @ 10:10:00 AM 134 / 81 ( 105 ) @ 10:23:00 AM Clinical Evaluation EBL: 5mL-10mL Procedural Details Procedure Consent Obtained. Pre-Procedure Time Out. Identified patient by full name and date of as verbalized by the patient/guarantor. Does the consent match the physician's order: Yes. Accurate & Complete Informed Consent: Yes. Inpatient/Outpatient History & Physical on Chart: Yes. If H&P is completed, is and addenduem needed: No. Visualize and Verify Site with Patient/Guarantor: N/A. Relevant Radiology Images available: Yes. The risks, benefits, and alternatives of sedation and/or procedure were discussed by physician. The patient agrees to continue. Procedure started. [facility] Clinical Fraility Score: 3: Managing Well. [employer] Indications: Worsening Angina/Unstable angina. Chest Pain Symptom Assessment: Typical Angina Symptoms. Cardiovascular Instability: No. Correct patient, site and procedure confirmed by cath team. PERRLA. Strong, equal hand electronics specialist bilaterally. Lungs clear x 5 lobes. IV Site on Arrival: 20 gauge in the right anticubital. IV Fluids: 0.9% NaCl at KVO. 100 mL infused prior to [employer]. Pre Procedural Pulses: bilateral dorsalis pedis was 3+. Pre Procedural Pulses: bilateral posterior tibial was 3+. Oxygen started at 2liters/min via nasal canula. bilateral groins was prepped with chloroprep then draped in the usual sterile fashion. Physician notified. Baseline sample Acquired. HR: 63 BPM. Patient's family unavailable. Equipment: 6F - Femoral. Cardiac Cath Pack. ACIST Manifold Kit Model BT 2000. Heparinized Saline (2 units/mL), 1000 mL bag. Kit, Micropuncture. Physician arrived. Immediate Pre-Procedure Time Out. Correct Patient: Yes; Correct Procedure: Yes; Correct Site: Yes; Correct Patient Position: Yes; Correct Supplies: Yes; Dried Flammable Prep: Yes: Blood Products Available: N/A;. Lidocaine 1% infiltrated to the right groin. Arterial access obtained with micropuncture set. A 5 zambian JL4 catheter in over the standard J wire. Multiple views taken of left coronary artery. Catheter removed over the standard J wire. A 5 zambian JR4 catheter in over the standard J wire. Current Diagnosis : Unstable angina. Multiple views taken of right coronary artery. Catheter removed over the standard J wire. PCI Indication: CAD (without ischemic symptoms). 6 zambian JR 4 SH guide catheter was inserted over the standard J wire. Runthrough guidewire was advanced through the guide catheter to lesion in the mid RCA. Inflation number : 1 A AB TREK 2.50X12 RX BALLOON was prepped and advanced across the Mid RCA , then inflated to 8 JENNIFER for 0:13 seconds. Balloon out. Guideliner in OTW. Results checked. Inflation number: 2 The AB TREK 2.50X12 RX BALLOON was reinflated across the Mid RCA, to 8 JENNIFER for 0:12 seconds. Inflation number: 3 The AB TREK 2.50X12 RX BALLOON was reinflated across the Mid RCA, to 10 JENNIFER for 0:14 seconds. Balloon out. Inflation Number : 4 A BETH Sullivan MELANI 2.5X15 PATY -Lot Number# [id number] Exp. was prepped and advanced across the Mid RCA. The stent was deployed at 12 JENNIFER for 0:20 seconds. Stent balloon out over wire. Results checked. Guideliner and Wire out. ACT drawn. Results out of range HI. Guide catheter out over the standard J wire. A Right femoral angiogram was performed to determine safe placement of closure device. A Suture was successful obtaining hemostatsis at the Right Femoral artery insertion site. Sheath(s) sutured into position with 2-0 silk and sterile 4x4's and Op-site applied over the site. No oozing or signs and symptoms of hematoma noted. Arterial sheath flushed and connected to tranducer and pressure bag with heparinized saline. Post Procedure: Pulses reassessed and unchanged. PERRLA. Strong, equal hand electronics specialist bilaterally. No VTE prophylaxis required. Medication's Wasted: Lidocaine 1% = 10 mL. Medication's Wasted: Heparin = 4000 units. Medication's Wasted: Other = Fentanyl 25 mcg. Medication's Wasted: Other = Versed [address] Mathews scrubbed out. Total IV fluids: 50 mL. Post-op diagnosis: PATY to Mid RCA x 1. Complications: none. Estimated blood loss: 5mL-10mL. Responsiveness - Normal response to verbal stimuli; alert and oriented, PERRLA. Airway - Unaffected, no intervention required; spontaneous ventilation. Circulation: W/N/L, pulses unchanged. Nausea/Vomiting: No. Vital chart was stopped. Procedure completed. Patient transferred by bed to 1st floor. Access Site Site: Right Femoral artery Sheath Size: 6 Fr Hemostasis Method: Suture Hemostasis Success: Successful Procedure Medications Start: 8:58 AM Stop: 8:58 AM Medication: Benadryl Amount: 25 mg Route: I.V. Start: 9:03 AM Stop: 9:03 AM Medication: Versed Amount: 1 mg Route: I.V. Start: 9:03 AM Stop: 9:03 AM Medication: Fentanyl Amount: 50 mcg Route: I.V. Start: 8:51 AM Stop: 8:51 AM Medication: Aspirin Amount: 81 mg Route: P.O. Start: 8:51 AM Stop: 8:51 AM Medication: Plavix Amount: 75 mg Route: P.O. Start: 9:06 AM Stop: 9:06 AM Medication: Versed Amount: 1 mg Route: I.V. Start: 9:17 AM Stop: 9:17 AM Medication: Heparin Amount: 6000 units Route: I.V. Start: 9:18 AM Stop: 9:18 AM Medication: Versed Amount: 1 mg Route: I.V. Start: 9:27 AM Stop: 9:27 AM Medication: Heparin Amount: 1000 units Route: I.V. Start: 9:29 AM Stop: 9:29 AM Medication: Fentanyl Amount: 25 mcg Route: I.V. I, the attending physician, have reviewed and verified all procedure medications. Yes, all medications given per verbal order History/Risk Factors Hypertension: Yes Dyslipidemia: Yes Peripheral Arterial Disease (PAD): No Myocardial Infarction (ND): Yes Obesity: No Renal Disease: No Prior Interventions PCI: Yes CABG: No Valve Surgery: No Date of PCI: 06/23/2025 Report Signatures Finalized by Bhargav Mathews MD on 07/23/2025 12:17 PM
--- NOTE | 2025-07-12 08:44 | P.PN_ITS ---
<Statement entered by Bhargav Mathews M.D - 07/14/25 10:43> Patient was cared for in conjunction with an advanced practice practitioner.? I reviewed the chart and all pertinent data including imaging, telemetry, and laboratory results.? I discussed the patient in detail with the advanced practice practitioner.? Please see?their note for progress note, testing results and agreed upon plan of care for the patient. Patient had PCI of mid RCA with 1 stent. No chest pain. Subjective 2 Subjective: Coronary angiogram this morning. No epigastric pain or vomiting last night. Vitals/I&O/Wt Last Vital Signs Temp 97.7 F 07/12/25 07:38 Pulse 67 07/12/25 07:38 Resp 16 07/12/25 07:38 BP 126/89 07/12/25 07:38 Pulse Ox 94 07/12/25 07:38 O2 Del Method Room Air 07/12/25 04:00 07/11/25 07/12/25 07/12/25 22:59 06:59 14:59 Intake Total 283.4 / 283.4 Balance 283.4 / 283.4 Weight last 48 hrs Weight 179 lb 12.8 oz Weight 179 lb Weight 177 lb Physical Exam 2 Const: COMMON NORMALS: no acute distress and patient oriented x3 GENERAL APPEARANCE: cooperative and comfortable ORIENTATION/CONSCIOUSNESS: Yes awake, Yes oriented to person, Yes oriented to place and Yes oriented to time Chest: COMMONS NORMALS: normal inspection of the chest and normal palpation of entire chest wall CHEST: Yes Symmetrical chest wall rise Resp: COMMON NORMALS: normal respiratory effort, No retractions, No use of accessory muscles and clear to auscultation bilaterally EFFORT & INSPECTION: Yes symmetric chest movement AUSCULTATION: clear to auscultation bilaterally Cardio: COMMON NORMALS: regular rate, regular rhythm, S1 normal heart sound present, S2 normal heart sound present, No gallops present (Cardio), No clicks present (Cardio), No murmurs present (Cardio) and No rub (Cardio) RATE: r egular rate RHYTHM: regular rhythm HEART SOUNDS: S1 normal heart sound present and S2 normal heart sound present PERIPHERAL PULSES: radial pulses present Extremity: COMMON NORMALS: no pedal edema Neuro: COMMON NORMALS: patient oriented x3 and moves all extremities S ENSORIUM/ORIENTATION: Yes oriented to person, Yes oriented to place and Yes oriented to time Data 07/12/25 05:25 07/12/25 05:25 A&P Assessment and plan 1. Unstable angina: 2. Nicotine addiction: 3. CAD (coronary artery disease): 4. Dyslipidemia: 5. Essential hypertension: Plan: Optimized for cath. Further plan based on results of procedure. PDMP PDMP Reviewed: Not Reviewed Attestations 2 Medical Necessity Statement*: cath today Coding Level of Care Code Acute Code for [facility] Diagnoses Unstable angina I20.0 Nicotine addiction F17.200 CAD (coronary artery disease) I25.10 Dyslipidemia E78.5 Essential hypertension I10
--- NOTE | 2025-07-12 08:56 | W.PM.OPSUD ---
Surgery/Procedure H&P Update DATE OF PROCEDURE: July 12, 2025 DATE H&P PERFORMED: 07/11/25 H&P UPDATE INFORMATION: I have reviewed H&P completed within last 30 days, I have examined patient prior to procedure and No changes to prior documentation PREOP DIAGNOSIS: Unstable angina PRIMARY INDICATION FOR PROCEDURE: Unstable angina PLANNED PROCEDURE: Operation Date: 07/12/25 07:00 Proposed Procedures p Cardiac Catheterization(Not Applicable) - Bhargav Mathews M.D Possible percutaneous coronary intervention PATIENT REASSESSED PRIOR TO SEDATION, WITH NO CHANGE NOTED: Yes PHYSICAL EXAM: alert, oriented x 3, clear to auscultation bilaterally and regular rate & rhythm AIRWAY EVAL/ANESTHESIA PLAN: normal airway, ASA III, Local Anesthesia, Risks, benefits & alternatives of sedation and/or procedure discussed and Patient agrees to continue as planned ADDITIONAL INFORMATION: Moderate sedation
--- NOTE | 2025-07-12 09:55 | P.PCN_ITS ---
Procedure Note: Date of procedure: 07/12/25 Pre-procedure diagnosis: Unstable angina Post-procedure diagnosis: other (Severe mid RCA stenosis s/p PCI with 1 stent) Procedure: Patent prior left circumflex artery stent. Post PCI of mid RCA with 1 stent. Dual antiplatelet therapy with aspirin and plavix High intensity statin therapy Performing Provider: Bhargav Mathews Estimated blood loss (mL): 10 Complications: None Condition: stable Disposition: floor Coding [facility]
--- NOTE | 2025-07-12 10:53 | PC.NURSE ---
patient arrived back from [facility] at 1000. Right femoral sheath in place, connected to pressure bag. No hematoma noted.
--- NOTE | 2025-07-12 10:57 | PC.NURSE ---
see vital signs for post cardiac cath worksheet on charted vitals.
--- NOTE | 2025-07-12 11:15 | P.PN_ITS ---
Subjective 2 Subjective: the patient was seen post procedure cath through right femoral approach. doing well and no symptoms at the moment. stable, voiced no complains successful PCI to Post PCI of mid RCA with 1 stent emphasis on the smoking abstinence has been provided alongwith diet control Vitals/I&O/Wt Last Vital Signs Temp 97.7 F 07/12/25 07:38 Pulse 66 07/12/25 11:05 Resp 17 07/12/25 11:05 BP 137/76 07/12/25 11:05 Pulse Ox 93 07/12/25 11:05 O2 Del Method Room Air 07/12/25 04:00 07/11/25 07/12/25 07/12/25 22:59 06:59 14:59 Intake Total 283.4 / 283.4 Balance 283.4 / 283.4 Weight last 48 hrs Weight 81.556 kg Weight 81.193 kg Weight 80.286 kg Physical Exam 2 Narrative: General: Alert and oriented, lying comfortably without any distress, s/p PCI through right femoral approach, no hematoma or bleeding observed HEENT: Normocephalic, atraumatic, grossly unremarkable exam Cardio: normal rate rhythm, normal S1-S2 without any murmurs, rubs, or gallops and JVD normal Respiratory: normal vascular breathing on auscultation without any wheezes, stridor, rhonchi GI: Abdomen soft, nontender, nondistended, normoactive bowel sounds present all 4 quadrants, Neuro: intact cranial nerves motor and sensory and cerebellar/coordination function without any focal neurological deficit Behavior: Appropriate and cooperative Extremities: Adequate palpable pulses, no edema or cyanosis observed, right femoral approach used for PCI, unremarkable exam Skin: grossly unremarkable exam Data 07/12/25 05:25 07/12/25 05:25 A&P Assessment and plan 1. Unstable angina: 2. CAD (coronary artery disease): 3. Nicotine addiction: 4. Dyslipidemia: Plan: - Cardiology on board, status Post PCI of mid RCA with 1 stent this visit, patient prior circumflex artery - Continue high intensity statins, continue on aspirin and clopidogrel, heparin infusion to d/c successful s/p PCI with adequate flow and resolution of symptoms achieved - metoprolol 25mg bid - Losartan 25mg bid, at the time of admission it was kept daily to make sure of appropriate BP readings - Emphasis on smoking cessation has been provided - Telemetry monitoring - Monitor vitals - resume diet - monitor the right femoral approach for 24 hours and for possible discharge tomorrow VTE: Enoxaparin Diet: Cardiac diet PDMP PDMP Reviewed: Not Reviewed Attestations 2 Medical Necessity Statement*: patient will stay less than 1 midnight for Time Spent in Patient Care: 16 - 35 minutes (>than 50% of time sp ent in counselling and/or direct pt care on unit) . Other Attestations: Patient condition has been discussed at length with the patient/family, I have independently reviewed the chart labs imaging/diagnostics/EKG. the goals of care and code status with the patient/family/NOK/legal mechanical service representative, and documented accordingly. The patient/family has been informed about the current condition and further plan of care. Agreed with the plan of care and understood without any language barrier. Every effort was made to ensure accuracy of major donor coordinator. Any obvious errors or omissions should be clarified with the author of the document. Coding Level of Care Code Acute Code for [facility] Diagnoses Unstable angina I20.0 CAD (coronary artery disease) I25.10 Nicotine addiction F17.200 Dyslipidemia E78.5
[2025-07-12 12:37] LABS: Partial Thromboplastin Time > 250.0 SECONDS (23.9-36.7)
[2025-07-12 13:33] LABS: Partial Thromboplastin Time 47.8 SECONDS (23.9-36.7)
--- NOTE | 2025-07-12 14:09 | PC.NURSE ---
Right femoral sheath removed at 1338 and pressure held until 1402. No hematoma formation. Very minimal bleeding. Gauze and tegaderm applied to site.
[2025-07-13] VITALS: BP 149/81; PULSE 110; RESP 13; O2SAT 95
[2025-07-13 04:00] VITALS: BP 141/76; PULSE 90; RESP 28; TEMP 36.6; O2SAT 91
[2025-07-13 04:05] LABS: Hematocrit 39.5 % (37-53); Hemoglobin 13.20 g/dL (11.27-16.99); Mean Corpuscular HGB Conc 33.4 g/dL (30-55); Mean Corpuscular Hemoglobin 29.5 pg (27-33); Mean Corpuscular Volume 88.4 fl (82-101); Nucleated Red Blood Cells % 0 %; Platelet Count 169 10^3/cmm (157-399); Red Blood Count 4.47 10^6/uL (3.85-5.65); White Blood Count 5.98 10^3/uL (3.29-11.43)
[2025-07-13 04:28] LABS: Alanine Aminotransferase 14 U/L (0-41); Albumin Level 3.7 g/dL (3.5-5.2); Alkaline Phosphatase 76 U/L (40-130); Anion Gap 15.6 (5-19); Aspartate Amino Transferase 16 U/L (0-40); Blood Urea Nitrogen 9 mg/dL (8-23); Calcium 8.8 mg/dL (8.5-10.5); Carbon Dioxide 25 mmol/L (22-29); Chloride 100 mmol/L (98-107); Creatinine Clr Calc Pharmacy 91.4869; Globulin 3.1 g/dL (1.3-4.6); Glucose 95 mg/dL (65-115); Osmolality Calculated 282 mOsm/kg (285-295); Potassium 3.6 mmol/L (3.5-5.1); Sodium 137 mmol/L (136-145); Total Protein 6.8 g/dL (6.6-8.7)
[2025-07-13 06:00] VITALS: PULSE 87
[2025-07-13 07:59] VITALS: BP 108/80; PULSE 97; RESP 18; TEMP 37
[2025-07-13 09:49] VITALS: BP 108/80
--- NOTE | 2025-07-13 10:35 | P.PN_ITS ---
<Statement entered by Bhargav Mathews M.D - 07/14/25 11:10> Patient was cared for in conjunction with an advanced practice practitioner.? I reviewed the chart and all pertinent data including imaging, telemetry, and laboratory results.? I discussed the patient in detail with the advanced practice practitioner.? Please see?their progress note, testing results and agreed upon plan of care for the patient. Subjective 2 Subjective: He has done well overnight, no chest pain or shortness of breath. No complications with right femoral cath site. Vitals/I&O/Wt Last Vital Signs Temp 98.6 F 07/13/25 07:59 Pulse 97 07/13/25 07:59 Resp 18 07/13/25 07:59 BP 108/80 07/13/25 09:49 Pulse Ox 91 07/13/25 04:00 O2 Del Method Room Air 07/13/25 04:00 07/12/25 07/13/25 07/13/25 22:59 06:59 14:59 Intake Total 480 / 990 150 / 990 Output Total 350 / 350 Balance 130 / 640 150 / 640 Weight last 48 hrs Weight 176 lb 8 oz Weight 176 lb 8 oz Weight 179 lb 12.8 oz Weight 179 lb Weight 177 lb Physical Exam 2 Const: COMMON NORMALS: no acute distress and patient oriented x3 GENERAL APPEARANCE: cooperative ORIENTATION/CONSCIOUSNESS: Yes awake, Yes oriented to person, Yes oriented to place and Yes oriented to time Chest: COMMONS NORMALS: normal inspection of the chest and normal palpation of entire chest wall CHEST: Yes Symmetrical chest wall rise Resp: COMMON NORMALS: normal respiratory effort, No retractions, No use of accessory muscles and clear to auscultation bilaterally AUSCULTATION: clear to auscultation bilaterally Cardio: COMMON NORMALS: regular rate, regular rhythm, S1 normal heart sound present, S2 normal heart sound present, No gallops present (Cardio), No clicks present (Cardio), No murmurs present (Cardio) and No rub (Cardio) RATE: r egular rate RHYTHM: regular rhythm HEART SOUNDS: S1 normal heart sound present and S2 normal heart sound present PERIPHERAL PULSES: radial pulses present positive right 2+ and femoral pulses present positive right 2+ Neuro: COMMON NORMALS: patient oriented x3 and moves all extremities S ENSORIUM/ORIENTATION: Yes oriented to person, Yes oriented to place and Yes oriented to time Skin: WOUNDS: Yes surgical site (no hematoma palpable) Details: no odor Data 07/13/25 03:41 07/13/25 03:41 A&P Assessment and plan 1. CAD (coronary artery disease): 2. Dyslipidemia: 3. Essential hypertension: 4. Tobacco abuse: Plan: He is doing well s/p PATY to mRCA. No recurrence of chest pain, cath site looks good. He may discharge home on aspirin, Plavix, atorvaststin 80mg daily, metoprolol and losartan. Follow up in cardiology clinic in 2-3 weeks, follow up with PCP in 1 week. PDMP PDMP Reviewed: Not Reviewed Attestations 2 Medical Necessity Statement*: dc home Coding Level of Care Code Acute Code for [facility] Diagnoses CAD (coronary artery disease) I25.10 Dyslipidemia E78.5 Essential hypertension I10 Tobacco abuse Z72.0
--- NOTE | 2025-07-13 10:56 | PM.DCS ---
Discharge Providers Date of Admission: 07/11/25 16:58 Date of Discharge: July 13, 2025 Attending Provider at Admission: Maday Mendosa MD Attending Provider at Discharge: Maday Mendosa MD Primary Care Provider: Yesica Parks NP Diagnoses at Discharge Discharge Diagnosis 1. CAD (coronary artery disease): 2. Dyslipidemia: 3. Essential hypertension: 4. Tobacco abuse: Reason for Visit Reason for Visit: ABD Pain into Lower Back Brief History: As per the previous retrospective notes and the patient Dorian Tabares is a 59 year old male with past medical history of CAD, previous NSTEMI 2011 and May 2025, PCI to the left circumflex in 2011, PCI to the mid [place] and in-stent restenosis of the circumflex 06/23/2025. At that time RCA noted to be tortuous, contained moderate stenosis. He had a short period of atrial fibrillation surrounding the PCI but converted to sinus rhythm shortly thereafter. He has been taking aspirin, Plavix, statin and beta-irwin regularly. When he was discharged he was pain-free until few days ago when he has noticed some intermittent epigastric discomfort that wraps in a band starting from the front of the chest to the back, occurring only at night. He notes a sensation like a gas bubble and needing to belch, then he vomits. The patient did not report any recent lower leg swellings, orthopnea or PND Echocardiogram during the last admission revealed LVEF 67%, mild concentric LVH, no significant valvular abnormality. He has had some inferior ischemic changes on his EKG, leads II, III and aVF show ST depression, with some reciprocal change in V2. Baseline troponin 12. Laboratory testing otherwise unremarkable. Patient seen by the cardiology and for plan of angiography during this admission Hospital Course Hospital Course During hospital stay, patient underwent angiography with s/p PCI to mid RCA with 1 stent and was also found to have patent prior left circumflex artery stent. Patient underwent successful catheterization and no complications status postprocedure. The patient was observed for another day. Labs and EKG reviewed. Cleared by the cardiology for discharge. Medication reconciled Emphasis on smoking and diet control has been provided Adequate follow-ups with the cardiology and primary care is already in place Patient condition has been discussed at length with the patient/family, I have independently reviewed the chart labs imaging/diagnostics/EKG. the goals of care and code status with the patient/family/NOK/legal assisted sales representative, and documented accordingly. The patient/family has been informed about the current condition and further plan of care. Agreed with the plan of care and understood without any language barrier. Every effort was made to ensure accuracy of cleaning supervisor. Any obvious errors or omissions should be clarified with the author of the document. Physical Exam Narrative: General: Alert and oriented, lying comfortably without any distress, s/p PCI through right femoral approach, no hematoma or bleeding observed, adequate perfusion distally and palpable pulses HEENT: Normocephalic, atraumatic, grossly unremarkable exam Cardio: normal rate rhythm, normal S1-S2 without any murmurs, rubs, or gallops and JVD normal Respiratory: normal vascular breathing on auscultation without any wheezes, stridor, rhonchi GI: Abdomen soft, nontender, nondistended, normoactive bowel sounds present all 4 quadrants, Neuro: intact cranial nerves motor and sensory and cerebellar/coordination function without any focal neurological deficit Behavior: Appropriate and cooperative Extremities: Adequate palpable pulses, no edema or cyanosis observed, right femoral approach used for PCI, unremarkable exam Skin: grossly unremarkable exam Discharge Data Studies Completed and Pending Completed Studies During Hospitalization Category Date Time Status XR chest 1V portable [id number] Stat Exams 07/11/25 13:44 Completed Pending at discharge Category Date Time Status CONSTRUCTION CODE ADMINISTRATOR request for service Routine Exams 07/12/25 08:00 Taken Radiology Impressions Chest X-Ray 07/11/25 13:44 IMPRESSION: Stable chest with no acute abnormality. Laboratory Results WBC 5.98 10^3/uL (3.29-11.43) 07/13/25 03:41 RBC 4.47 10^6/uL (3.85-5.65) 07/13/25 03:41 Hgb 13.20 g/dL (11.27-16.99) 07/13/25 03:41 Hct 39.5 % (37-53) 07/13/25 03:41 MCV 88.4 fl (82-101) 07/13/25 03:41 MCH 29.5 pg (27-33) 07/13/25 03:41 MCHC 33.4 g/dL (30-55) 07/13/25 03:41 RDW 13.3 % (12.1-15.1) 07/13/25 03:41 Plt Count 169 10^3/cmm (157-399) 07/13/25 03:41 MPV 9.8 fL (7.4-10.4) 07/13/25 03:41 Neut % (Auto) 75.5 % 07/13/25 03:41 Lymph % (Auto) 12.7 % 07/13/25 03:41 [place] % (Auto) 10.0 % 07/13/25 03:41 Eos % (Auto) 1.2 % 07/13/25 03:41 Baso % (Auto) 0.3 % 07/13/25 03:41 Neut # (Auto) 4.51 10^3/uL (1.8-7.7) 07/13/25 03:41 Lymph # (Auto) 0.8 10^3/uL (0.8-4.8) 07/13/25 03:41 [place] # (Auto) 0.6 10^3/uL (0.2-0.9) 07/13/25 03:41 Eos # (Auto) 0.1 10^3/uL (0.0-0.8) 07/13/25 03:41 Baso # (Auto) 0.0 10^3/uL (0.0-0.1) 07/13/25 03:41 Nucleated RBC % (auto) 0 % 07/13/25 03:41 Nucleated RBCs # 0.0 /100WBC 07/13/25 03:41 APTT 47.8 SECONDS (23.9-36.7) H D 07/12/25 13:15 Sodium 137 mmol/L (136-145) 07/13/25 03:41 Potassium 3.6 mmol/L (3.5-5.1) 07/13/25 03:41 Chloride 100 mmol/L (98-107) 07/13/25 03:41 Carbon Dioxide 25 mmol/L (22-29) 07/13/25 03:41 Anion Gap 15.6 (5-19) 07/13/25 03:41 BUN 9 mg/dL (8-23) 07/13/25 03:41 Creatinine 0.9 mg/dL (0.7-1.2) 07/13/25 03:41 GFR Calculation 85.8 mL/min (90-130) L 07/13/25 03:41 Glucose 95 mg/dL (65-115) 07/13/25 03:41 Calculated Osmolality 282 mOsm/kg (285-295) L 07/13/25 03:41 Calcium 8.8 mg/dL (8.5-10.5) 07/13/25 03:41 Magnesium 2.1 mg/dL (1.7-2.3) 07/11/25 13:57 Total Bilirubin 0.5 mg/dL (0.15-1.2) 07/13/25 03:41 AST 16 U/L (0-40) 07/13/25 03:41 ALT 14 U/L (0-41) 07/13/25 03:41 Alkaline Phosphatase 76 U/L (40-130) 07/13/25 03:41 Troponin T Baseline 12 ng/L (0-15) 07/11/25 13:57 Troponin T 120 Minute 13.74 ng/L (0-15) 07/11/25 15:50 Delta Troponin T 1.74 ABS# (0-10) 07/11/25 15:50 Troponin T Hi Sens 6Hr 12.36 ng/L (0-15) 07/11/25 19:35 Troponin T Hi Sens 6Hr Delta 0.36 ng/L (0-12) 07/11/25 19:35 Total Protein 6.8 g/dL (6.6-8.7) 07/13/25 03:41 Albumin 3.7 g/dL (3.5-5.2) 07/13/25 03:41 Globulin 3.1 g/dL (1.3-4.6) 07/13/25 03:41 Lipase 28 U/L (13-60) 07/11/25 13:57 Urine Color Yellow (Yellow) 07/11/25 14:33 Urine Appearance Clear (CLEAR) 07/11/25 14:33 Urine pH 6.0 (5-7) 07/11/25 14:33 Ur Specific [place] 1.010 (1.005-1.030) 07/11/25 14:33 Urine Protein Negative (Negative) 07/11/25 14:33 Urine Glucose (UA) Negative (Normal) 07/11/25 14:33 Urine Ketones Negative (Negative) 07/11/25 14:33 Urine Blood Trace (Negative) A 07/11/25 14:33 Urine Nitrate Negative (Negative) 07/11/25 14:33 Urine Bilirubin Negative (Negative) 07/11/25 14:33 Urine Urobilinogen 1.0 mg/dL (Negative) 07/11/25 14:33 Ur Leukocyte Esterase Negative (Negative) 07/11/25 14:33 Urine RBC 0-2 /hpf (0-2) 07/11/25 14:33 Urine WBC 0-5 /hpf (0-5) 07/11/25 14:33 Ur Squamous Epith Cells 0-5 /hpf (0-5) 07/11/25 14:33 Amorphous Sediment Not Reportable 07/11/25 14:33 Urine Bacteria None seen /hpf (NONE) 07/11/25 14:33 Hyaline Casts 0-4 /lpf H 07/11/25 14:33 Vitals Last Vital Signs Temp 98.6 F 07/13/25 07:59 Pulse 97 07/13/25 07:59 Resp 18 07/13/25 07:59 BP 108/80 07/13/25 09:49 Pulse Ox 91 07/13/25 04:00 O2 Del Method Room Air 07/13/25 04:00 Discharge Plan Discharge Patient Disposition: Home Condition: Stable Prescriptions: Continued (DME) Sole Supports Qty: 1 0RF Rx Instructions: As directed (DME) sole supports Qty: 1 0RF Rx Instructions: As directed (DME) sole supports See Rx Instructions .Route .MEDSUPPLY Qty: 1 0RF Rx Instructions: As directed nitroglycerin 0.4 mg tablet, sublingual See Rx Instructions .ROUTE .COMPLEX Qty: 25 2RF Dose Instruction: TAKE ONE TABLET UNDER THE TONGUE EVERY 5 MINUTES FOR MAX OF 3 FOR CHEST PAINS Rx Instructions: TAKE ONE TABLET UNDER THE TONGUE EVERY 5 MINUTES FOR MAX OF 3 FOR CHEST PAINS metoprolol tartrate 25 mg tablet 25 mg PO BID losartan 50 mg Tablet 25 mg PO BID Qty: 60 0RF clopidogrel 75 mg Tablet 75 mg PO DAILY Qty: 30 0RF aspirin 81 mg Tablet,Delayed Release (Dr/Ec) 81 mg PO DAILY Qty: 30 0RF atorvastatin [Lipitor] 80 mg tablet 80 mg PO BEDTIME Qty: 30 0RF Headwaitress OK for DC: Cardiology Discharge Order = DC NOW: Discharge Order (Routine); Ordered 07/13/25 Ordered By: Maday Mendosa Referrals: John Martinez MD [Physician, Cardiology] - 07/18/25 1:15 pm Yesica Parks NP [Primary Care Provider, Family Practice] - 07/20/25 10:00 am Discharge Diet: Cardiac Discharge Activity: Resume usual activity and Increase activity as tolerated Patient Instructions: Coronary Angioplasty (DC), Opioid Safety, Post Angiogram Home Care Instructions, Patient Portal & Marciano Instructions Discharge Attestations Time Spent in Discharge Care*: greater than 30 min Specific Discharge Activities: educating patient, educating and/or supporting family/caregiver, discussing with pcp/other providers, discussing with immigration case worker/social workers/dc planners, documenting/other paperwork and evaluating patient/reviewing data Time Spent in Smoking Cessation: 3 to 10 minutes Status at Discharge: Cognitive status at discharge: cognitively intact, Behavioral status at discharge: cooperative, Functional status at discharge: independent ambulation, Overall status at discharge: patient is back to baseline Quality Metrics Clinical Quality Measures [ No reported AMI, CVA or VTE this stay] Coding Level of Care Code Acute Code for Chg Fwd Diagnoses CAD (coronary artery disease) I25.10 Dyslipidemia E78.5 Essential hypertension I10 Tobacco abuse Z72.0
[2025-07-13 11:13] VITALS: BP 108/80; PULSE 97; O2SAT 95
== END 2025-07-13 11:15 | disposition home or self-care (01) ==
LOC: ER 15:30 → CSU 16:59
PROVIDERS: Internal Medicine; Nurse Practitioner Family; Admitting Provider Student in an Organized Health Care Education/Training Program; Emergency Provider Family Medicine; PCP Nurse Practitioner Family; Visit Provider Student in an Organized Health Care Education/Training Program
DX: I25.118 Atherosclerotic heart disease of native coronary artery with other forms of angina pectoris (principal); I10 Essential (primary) hypertension; E78.5 Hyperlipidemia, unspecified; I25.2 Old myocardial infarction; Z95.5 Presence of coronary angioplasty implant and graft; Z79.82 Long term (current) use of aspirin; F17.200 Nicotine dependence, unspecified, uncomplicated
CPT/HCPCS: 36415; 71045; 80053; 81001; 83690; 83735; 84484; 85025; 85347; 85730; 93005; 96365; 96375; 99152; 99153; 99285; C1725; C1769; C1874; C1887; C1894; C9600; G0378; J1200; J1644; J2250; J3010; J3490; J9999; Q9967

== ENCOUNTER 2025-07-26 00:25 | Emergency (ER) | payer OTHER, SELFPAY ==
[2025-07-26] VITALS (11 sets, daily range): BP systolic 159–205; BP diastolic 81–99; PULSE 67–86; RESP 16–20; TEMP 36.8; O2SAT 95–99; BMI 25.8
--- NOTE | 2025-07-26 00:39 | CTR_ITS ---
PROCEDURE INFORMATION: Exam: CT Abdomen And Pelvis With Contrast Exam date and time: 07/26/2025 1:42 AM Age: 59 years old Clinical indication: Abdominal pain; Additional info: Ruq pain TECHNIQUE: Imaging protocol: Computed tomography of the abdomen and pelvis with contrast. Radiation optimization: All CT scans at this facility use at least one of these dose optimization techniques: automated exposure control; mA and/or kV adjustment per patient size (includes targeted exams where dose is matched to clinical indication); or iterative reconstruction. Contrast material: OMNI 350; Contrast volume: 100 ml; Contrast route: INTRAVENOUS (IV); COMPARISON: CT abdomen pelvis wo con [id number] 04/02/2022 1:55 AM RADIATION DOSE METRICS: Total DLP (mGy-cm): 547.93 FINDINGS: Liver: Normal. No mass. Gallbladder and biliary ducts: Cholelithiasis is present. No substantial gallbladder wall thickening. No substantial pericholecystic fat stranding or fluid. The common bile duct measures up to 9 mm. Mild central intrahepatic bile duct dilatation is noted. Question of small intraluminal stone in the intrapancreatic common duct. Pancreas: See Gallbladder and biliary ducts finding. Spleen: Normal. No splenomegaly. Adrenal glands: Normal. No mass. Kidneys and ureters: Normal. No hydronephrosis. Stomach and bowel: Unremarkable. No obstruction. No mucosal thickening. Appendix: The appendix is normal. Intraperitoneal space: Unremarkable. No free air. No significant fluid collection. Vasculature: Mild atherosclerosis of the aorta and its major branching vessels is noted. Lymph nodes: Unremarkable. No enlarged lymph nodes. Urinary bladder: Unremarkable as visualized. Reproductive: Unremarkable as visualized. Bones/joints: Degenerative joint and disc disease is seen in the imaged spine. Soft tissues: Calcifications in the buttocks, which may represent injection granulomas. CT/CT abdomen pelvis w con* [id number] IMPRESSION: Intra and extrahepatic bile duct dilatation, with concern for choledocholithiasis. Correlate with LFTs/bilirubin. MRCP can be obtained for further characterization. No discrete CT evidence of acute cholecystitis of the time.
[2025-07-26 01:19] LABS: Hematocrit 45.3 % (37-53); Hemoglobin 15.00 g/dL (11.27-16.99); Mean Corpuscular HGB Conc 33.1 g/dL (30-55); Mean Corpuscular Hemoglobin 29.6 pg (27-33); Mean Corpuscular Volume 89.5 fl (82-101); Nucleated Red Blood Cells % 0 %; Platelet Count 235 10^3/cmm (157-399); Red Blood Count 5.06 10^6/uL (3.85-5.65); White Blood Count 10.96 10^3/uL (3.29-11.43)
[2025-07-26 01:34] LABS: Alanine Aminotransferase 295 U/L (0-41); Albumin Level 4.5 g/dL (3.5-5.2); Alkaline Phosphatase 229 U/L (40-130); Anion Gap 15.3 (5-19); Aspartate Amino Transferase 371 U/L (0-40); Blood Urea Nitrogen 10 mg/dL (8-23); Calcium 9.5 mg/dL (8.5-10.5); Carbon Dioxide 29 mmol/L (22-29); Chloride 99 mmol/L (98-107); Creatinine Clr Calc Pharmacy 81.3827; Globulin 3.2 g/dL (1.3-4.6); Glucose 167 mg/dL (65-115); Lipase 24 U/L (13-60); Osmolality Calculated 291 mOsm/kg (285-295); Potassium 4.3 mmol/L (3.5-5.1); Sodium 139 mmol/L (136-145); Total Protein 7.7 g/dL (6.6-8.7)
[2025-07-26] MEDS: morphine 4 mg/mL SDV 1 mL IVP (01:34)
[2025-07-26] MEDS: iohexol 350 mg/mL 500 mL Btl (per mL) IV (01:50)
--- NOTE | 2025-07-26 04:07 | ED_ITS ---
HPI - Abdominal Pain 2 General: Chief Complaint: Abdominal Pain Stated Complaint: ABD Pain to Lower Back Time Seen by Provider: 07/26/25 00:38 History of Present Illness: 59 yo M with Hx of CT s/p coronary stent s and HTN presents with epigastric/right upper quadrant pain radiating to the back and shoulder blades, starting ~30 minutes after eating fried chicken tonight. Similar episodes have occurred multiple times in the past, often around midnight and reportedly on Wednesdays. Pain previously responded to a GI cocktail. Patient reports concurrent back pain and increased discomfort when leaning back. Denies medication provided previously for this issue; currently on BP meds. Denies allergies. Vitals noted as stable on arrival. Caregiver notes prior personal experience with gallbladder removal and endorses similarity of symptoms. Related Data Previous Rx's ?Medication ?Instructions ?Recorded Sole Supports #1 ea 11/20/19 sole supports #1 ea 02/26/20 sole supports #1 ea 03/14/20 nitroglycerin 0.4 mg sublingual See Rx Instructions .R oute 11/24/23 tablet .COMPLEX #25 tabs aspirin 81 mg tablet,delayed 81 mg PO DAILY #90 tabs 0 07/18/25 release clopidogrel 75 mg tablet 75 mg PO DAILY #90 tabs 06/26 02/16 losartan 50 mg tablet 25 mg (1/2 x 50 mg) PO BID # 90 tabs 07/18/25 metoprolol tartrate 25 mg tablet 25 mg PO BID #180 tab s 07/18/25 atorvastatin 40 mg tablet (Lipitor) 40 mg PO DAILY #30 tabs 07/23/25 Allergies Allergy/AdvReac Type Severity Reaction Status Date / Time No Known Allergies Allergy Verified 07/26/25 00:34 [facility] ED 2 PFS: Medical History (Updated 07/26/25 @ 03:55 by Itz Hauser MD) Atrial fibrillation with rapid ventricular response CAD (coronary artery disease) Acute non-ST elevation myocardial infarction (NSTEMI) Non-ST elevation CT (NSTEMI) Glucose intolerance (impaired glucose tolerance) Presence of stent in left circumflex coronary artery Dyslipidemia Essential hypertension Surgical History S/P cardiac cath Hx of coronary angioplasty Social History Smoking and tobacco/nicotine status: current every day tobacco/nicotine user Alcohol intake: never Substance/Drug Use: never Marital status: Current occupational status: employed Physical Exam 2 Const: COMMON NORMALS: no acute distress, patient oriented x3 and alert HENMT: COMMON NORMALS: normocephalic and atraumatic HEAD & SCALP: n ormocephalic and atraumatic Eye: COMMON NORMALS: Equal, round and reactive pupils present, EOMs intact bilaterally and no scleral icterus PUPIL: Yes Equal, round and reactive pupils present Resp: COMMON NORMALS: normal respiratory effort and No retractions Cardio: COMMON NORMALS: regular rate, regular rhythm and No murmurs present (Cardio) RATE: regular rate RHYTHM: regular rhythm GI: OTHER: Tenderness to palpation in epigastric and right upper quadrant areas; palpation reproduces pain. Neuro: COMMON NORMALS: patient oriented x3 SENSORIUM/ORIENTATION: Yes alert Skin: COMMON NORMALS: no rashes or lesions noted GENERAL SKIN EXAM: no rashes or lesions noted Course 2 Vital Signs: Vital signs: Vital Signs Temperature 98.3 F 07/26/25 00:31 Pulse Rate 72 07/26/25 02:57 Respiratory Rate 18 07/26/25 02:57 Blood Pressure 159/84 07/26/25 02:57 Pulse Oximetry 96 07/26/25 02:57 Oxygen Delivery Me thod Room Air 07/26/25 02:57 MDM - Abdominal Pain Medical Decision Making 59 yo M with prior CT/stents and HTN presents with postprandial epigastric/RUQ pain radiating to back/shoulder blades, recurrent episodes, previously improved with GI cocktail. Vitals reportedly stable. PE notable for RUQ/epigastric tenderness to palpation reproducing pain. DDx: Biliary colic/cholelithiasis suspected given classic postprandial RUQ pain with radiation to shoulder blades. Cardiac etiology referenced by history but not the focus given symptoms pattern. LFTs are elevated and CT scan shows what appears to be choledocholithiasis. Unfortunately this hospital does not have ability to perform ERCP this patient will need to be transferred. I spoke with on-call ER physician at [facility] in [facility] who agrees it is reasonable for the patient to be transferred there for definitive management. Patient request to go by private vehicle and I think this is reasonable as his pain is currently 2 of 10 with no nausea or vomiting. He will remain n.p.o. and to travel with his who will drive him there. We discussed that his more typical for patient is to go by ambulance but given his relative stability all parties agree going by private vehicle is probably reasonable. Lab Data 07/26/25 01:05 07/26/25 01:05 Labs/Radiology: Radiology Impressions Abdomen/Pelvis CT 07/26/25 00:39 IMPRESSION: Intra and extrahepatic bile duct dilatation, with concern for choledocholithiasis. Correlate with LFTs/bilirubin. MRCP can be obtained for further characterization. No discrete CT evidence of acute cholecystitis of the time. Laboratory Results WBC 10.96 10^3/uL (3.29-11.43) 07/26/25 01:05 RBC 5.06 10^6/uL (3.85-5.65) 07/26/25 01:05 Hgb 15.00 g/dL (11.27-16.99) 07/26/25 01:05 Hct 45.3 % (37-53) 07/26/25 01:05 MCV 89.5 fl (82-101) 07/26/25 01:05 MCH 29.6 pg (27-33) 07/26/25 01:05 MCHC 33.1 g/dL (30-55) 07/26/25 01:05 RDW 13.6 % (12.1-15.1) 07/26/25 01:05 Plt Count 235 10^3/cmm (157-399) 07/26/25 01:05 MPV 9.6 fL (7.4-10.4) 07/26/25 01:05 Neut % (Auto) 79.4 % 07/26/25 01:05 Lymph % (Auto) 10.4 % 07/26/25 01:05 [place] % (Auto) 8.3 % 07/26/25 01:05 Eos % (Auto) 1.2 % 07/26/25 01:05 Baso % (Auto) 0.3 % 07/26/25 01:05 Neut # (Auto) 8.71 10^3/uL (1.8-7.7) H 07/26/25 01:05 Lymph # (Auto) 1.1 10^3/uL (0.8-4.8) 07/26/25 01:05 [place] # (Auto) 0.9 10^3/uL (0.2-0.9) 07/26/25 01:05 Eos # (Auto) 0.1 10^3/uL (0.0-0.8) 07/26/25 01:05 Baso # (Auto) 0.0 10^3/uL (0.0-0.1) 07/26/25 01:05 Nucleated RBC % (auto) 0 % 07/26/25 01:05 Nucleated RBCs # 0.0 /100WBC 07/26/25 01:05 Sodium 139 mmol/L (136-145) 07/26/25 01:05 Potassium 4.3 mmol/L (3.5-5.1) 07/26/25 01:05 Chloride 99 mmol/L (98-107) 07/26/25 01:05 Carbon Dioxide 29 mmol/L (22-29) 07/26/25 01:05 Anion Gap 15.3 (5-19) 07/26/25 01:05 BUN 10 mg/dL (8-23) 07/26/25 01:05 Creatinine 1.0 mg/dL (0.7-1.2) 07/26/25 01:05 GFR Calculation 76.0 mL/min (90-130) L 07/26/25 01:05 Glucose 167 mg/dL (65-115) H 07/26/25 01:05 Calculated Osmolality 291 mOsm/kg (285-295) 07/26/25 01:05 Calcium 9.5 mg/dL (8.5-10.5) 07/26/25 01:05 Total Bilirubin 1.7 mg/dL (0.15-1.2) H 07/26/25 01:05 AST 371 U/L (0-40) H 07/26/25 01:05 ALT 295 U/L (0-41) H 07/26/25 01:05 Alkaline Phosphatase 229 U/L (40-130) H 07/26/25 01:05 Total Protein 7.7 g/dL (6.6-8.7) 07/26/25 01:05 Albumin 4.5 g/dL (3.5-5.2) 07/26/25 01:05 Globulin 3.2 g/dL (1.3-4.6) 07/26/25 01:05 Lipase 24 U/L (13-60) 07/26/25 01:05 All radiology interpretation(s) finalized by discharge Discharge Plan Discharge Patient Disposition: Xfer Short-Term Hosp Clinical Impression: Choledocholithiasis Condition: Stable Referrals: Yesica Parks NP [Primary Care Provider, Family Practice] Activity Restrictions/Additional Instructions: Please go directly to the [facility] emergency room. I spoke with one of the ER doctors at [facility] and they reassured me that they have all the required specialist there to take care of your choledocholithiasis. Please do not eat or drink anything on your way to their ER. Print Language: Amharic Coding Level of Care Code ED Club Waiter/Waitress for Giovani Loza
== END 2025-07-26 04:49 | disposition short-term general hospital (02) ==
PROVIDERS: Emergency Provider Student in an Organized Health Care Education/Training Program; PCP Nurse Practitioner Family
DX: K80.50 Calculus of bile duct without cholangitis or cholecystitis without obstruction (principal); Z72.0 Tobacco use; I25.10 Atherosclerotic heart disease of native coronary artery without angina pectoris; E78.5 Hyperlipidemia, unspecified; I10 Essential (primary) hypertension
CPT/HCPCS: 36415; 74177; 80053; 83690; 85025; 96374; 99285; J2270